=== PATIENT | female | born 1960 | race Caucasian/White ===

== ENCOUNTER 2016-09-14 11:58 | Emergency (ER) | payer MEDICAID, MEDICARE ==
--- NOTE | 2016-09-14 12:43 | ER Document Report ---
ED Medical Screen (RME) - General Chief Complaint: Abdominal Pain Stated Complaint: STOMACH PAIN Mode of Arrival: Wheelchair Information source: Patient Notes: Patient complaints of intermittent severe lower abdominal pain, described as "bladder spasms" that started around 0830 this morning causing her to feel like she might pass out. She states she has tried a bladder pill and her normal morning medications, including morphine and 2 tylenol which has not helped. She has history of OAB, incontinence but this has worsened since this morning. Endorses associated urinary urgency but no dysuria or frequency or any fever, chills, nausea, vomiting. She also states she uses home O2 (2L via [place]) while "resting." O2 sat in triage on RA is 90%. TRAVEL OUTSIDE OF THE [place] IN LAST 30 DAYS: No - Related Data Allergies/Adverse Reactions: rizatriptan benzoate [From Maxalt] Allergy (Severe, Verified 06/02/16 16:01) Tachycardia sumatriptan succinate [From Imitrex STATdose Pen] Allergy (Severe, Verified 16:01) Anaphylaxis zolmitriptan [From Zomig] Allergy (Severe, Verified 06/02/16 16:01) Tachycardia codeine Allergy (Verified 09/14/16 12:09) latex [Latex] Allergy (Verified 06/02/16 16:01) Past Medical History - Past Medical History Cardiac Medical History: Denies: Hx Coronary Artery Disease, Hx Heart Attack, Hx Hypertension Pulmonary Medical History: Reports: Hx Bronchitis, Hx COPD, Hx Pneumonia Denies: Hx Asthma Neurological Medical History: Reports: Hx Cerebrovascular Accident - 2003 and 2008; left sided deficit, Hx Migraine. Denies: Hx Seizures GI Medical History: Reports: Hx Diverticulitis, Hx Hiatal Hernia, Hx Ulcer, Hx Colonoscopy, Hx Endoscopy Musculoskeltal Medical History: Reports Hx Arthritis, Reports Hx Musculoskeletal Deformity, Reports Hx Musculoskeletal Trauma Psychiatric Medical History: Reports: Hx Anxiety, Hx Depression Traumatic Medical History: Reports: Hx Fractures Past Surgical History: Reports: Hx Appendectomy, Hx Bowel Surgery - resection, Hx Cardiac Surgery - mechanical aortic valve, Hx Hysterectomy, Hx Nose Surgery, Hx Oral Surgery - wisdom teeth and TMJ, Hx Orthopedic Surgery - carpal tunnel right wrist, right elbow nerve, Hx Tonsillectomy, Hx Valve Replacement - Immunizations Immunizations up to date: Yes Hx Diphtheria, Pertussis, Tetanus Vaccination: Yes - 2011 Review of Systems - Review of Systems Constitutional: See HPI Gastrointestinal: See HPI Genitourinary: See HPI Physical Exam - Vital signs Vitals: Temp Pulse Resp BP 97.9 F 101 H 20 100/67 09/14/16 12:12 09/14/16 12:12 09/14/16 12:12 09/14/16 12:12 - Notes Notes: General: Well-appearing, no respiratory distress. Speaking in full sentences. O2 at 90% on RA. Course - Re-evaluation Re-evalutation: 09/14/16 12:43 Patient seen and examined. Ordered oxygen supplementation and urinalysis. - Vital Signs Vital signs: Temp Pulse Resp BP Pulse Ox 97.9 F 101 H 20 100/67 09/14/16 12:12 09/14/16 12:12 09/14/16 12:12 09/14/16 12:12
--- NOTE | 2016-09-14 16:34 | ER Document Report ---
ED GI/ - General Mode of Arrival: Wheelchair Information source: Patient TRAVEL OUTSIDE OF THE [place] IN LAST 30 DAYS: No - HPI Patient complains to provider of: Abdominal pain Associated symptoms: Other - See above <JENNIFER BIANCHI - Last Filed: 09/14/16 17:22> <PAVANNIKKI Kaur - Last Filed: 09/14/16 18:57> - General Chief Complaint: Abdominal Pain Stated Complaint: STOMACH PAIN Notes: Patient is a 56 year old female, with a past medical history including UTIs, who presents to the emergency department complaining of abdominal pain. Patient reports the pain is caused by bladder spasms that she usually experiences when she has an infection. Patient states that she had similar symptoms 3 weeks ago and was prescribed Keflex by Dr. Taylor. PCP: Dr. Byrd (JENNIFER BIANCHI) - Related Data Allergies/Adverse Reactions: rizatriptan benzoate [From Maxalt] Allergy (Severe, Verified 06/02/16 16:01) Tachycardia sumatriptan succinate [From Imitrex STATdose Pen] Allergy (Severe, Verified 16:01) Anaphylaxis zolmitriptan [From Zomig] Allergy (Severe, Verified 06/02/16 16:01) Tachycardia codeine Allergy (Verified 09/14/16 12:09) latex [Latex] Allergy (Verified 06/02/16 16:01) Past Medical History - General Information source: Patient - Social History Smoking Status: Unknown if Ever Smoked Family History: Reviewed & Not Pertinent, CAD, CVA, DM, Hyperlipidemia, Hypertension, Malignancy, Thyroid Disfunction Pulmonary Medical History: Reports: Hx Bronchitis, Hx COPD, Hx Pneumonia Neurological Medical History: Reports: Hx Cerebrovascular Accident - 2003 and 2008; left sided deficit, Hx Migraine GI Medical History: Reports: Hx Diverticulitis, Hx Hiatal Hernia, Hx Ulcer, Hx Colonoscopy, Hx Endoscopy Musculoskeltal Medical History: Reports Hx Arthritis, Reports Hx Musculoskeletal Deformity, Reports Hx Musculoskeletal Trauma Psychiatric Medical History: Reports: Hx Anxiety, Hx Depression Traumatic Medical History: Reports: Hx Fractures Past Surgical History: Reports: Hx Appendectomy, Hx Bowel Surgery - resection, Hx Cardiac Surgery - mechanical aortic valve, Hx Hysterectomy, Hx Nose Surgery, Hx Oral Surgery - wisdom teeth and TMJ, Hx Orthopedic Surgery - carpal tunnel right wrist, right elbow nerve, Hx Tonsillectomy, Hx Valve Replacement - Immunizations Immunizations up to date: Yes Hx Diphtheria, Pertussis, Tetanus Vaccination: Yes - 2011 Hx Pneumococcal Vaccination: 09/13/04 <JENNIFER BIANCHI - Last Filed: 09/14/16 17:22> Review of Systems - Review of Systems Constitutional: No symptoms reported EENT: No symptoms reported Cardiovascular: No symptoms reported Respiratory: No symptoms reported Gastrointestinal: See HPI, Abdominal pain - bladder spasm Genitourinary: No symptoms reported Female Genitourinary: No symptoms reported Musculoskeletal: No symptoms reported Skin: No symptoms reported Hematologic/Lymphatic: No symptoms reported Neurological/Psychological: No symptoms reported -: Yes All other systems reviewed and negative <JENNIFER BIANCHI - Last Filed: 09/14/16 17:22> Physical Exam - Vital signs Interpretation: Normal - General General appearance: Appears well, Alert - HEENT Head: Normocephalic, Atraumatic - Respiratory Respiratory status: No respiratory distress Chest status: Nontender Breath sounds: Normal Chest palpation: Normal - Cardiovascular Rhythm: Regular Murmur: Yes - Click and murmur noted on auscultation from mechanical valve - Abdominal Inspection: Normal Distension: No distension Bowel sounds: Normal Tenderness: Tender - suprapubic tenderness to palpation Organomegaly: No organomegaly - Extremities General upper extremity: Normal inspection General lower extremity: Normal inspection - Neurological Neuro grossly intact: Yes Cognition: Normal Orientation: AAOx4 Keli Coma Scale Eye Opening: Spontaneous [place] Coma Scale Verbal: Oriented [place] Coma Scale Motor: Obeys Commands Keli Coma Scale Total: 15 Speech: Normal - Psychological Associated symptoms: Normal affect, Normal mood - Skin Skin Temperature: Warm Skin Moisture: Dry Skin Color: Normal <JENNIFER BIANCHI - Last Filed: 09/14/16 17:22> Course <JENNIFER BIANCHI - Last Filed: 09/14/16 17:22> - Laboratory Result Diagrams: 09/14/16 17:17 09/14/16 17:17 <NIKKI BROWNE - Last Filed: 09/14/16 18:57> - Re-evaluation Re-evalutation: 09/14/16 18:53 Reviewing the patient's records shows when she has had positive urine cultures, they grew organisms were sensitive to Keflex. The fact that her urologist put her on Keflex 3 weeks ago suggest that he has the same information. (NIKKI BROWNE) - Vital Signs Vital signs: Temp Pulse Resp BP Pulse Ox 97.9 F 101 H 20 100/67 09/14/16 12:12 09/14/16 12:12 09/14/16 12:12 09/14/16 12:12 (JENNIFER BIANCHI) (NIKKI BROWNE) - Laboratory Laboratory results interpreted by me: 09/14/16 09/14/16 09/14/16 16:15 17:17 17:17 MCH 26.6 L MCHC 31.4 L RDW 16.4 H PT 22.0 H Urine Protein 100 H Urine Blood LARGE H Ur Leukocyte Esterase LARGE H (NIKKI BROWNE) Discharge <JENNIFER BIANCHI - Last Filed: 09/14/16 17:22> <NIKKI BROWNE - Last Filed: 09/14/16 18:57> - Discharge Clinical Impression: Urinary tract infection Qualifiers: Urinary tract infection type: acute cystitis Hematuria presence: without hematuria Qualified Code(s): N30.00 - Acute cystitis without hematuria Condition: Stable Disposition: HOME, SELF-CARE Additional Instructions: Urinary Tract Infection: Your evaluation indicates that you have a urinary tract infection. This is due to germs growing in the bladder. This is a common problem. This infection usually responds quickly to antibiotics. Your antibiotic should be taken exactly as prescribed. Drink plenty of fluids -- three to four quarts a day. Occasionally, a bladder anesthetic will be prescribed to help stop the feeling of urgency until the antibiotic has a chance to clear the infection. This may cause your urine to be dark orange. Certain urine infections require a culture. If the doctor obtained a culture, the results will be back in two days. You should call to see if a change in treatment is needed. A repeat urinalysis after you finish treatment is often recommended. The physician will let you know if further testing is required. Call the doctor if you develop fever, chills, flank pain, inability to urinate, or blood in the urine. TAKE THE MEDICATION PRESCRIBED. DRINK PLENTY OIF FLUIDS. TAKE AZO-STANDARD TO REDUCE THE BLADDER IRRITATION SYMPTOMS. FOLLOW UP WITH YOUR DOCTOR THIS WEEK IF NOT IMPROVING. RETURN TO THE EMERGENCY ROOM IF ANY NEW OR WORSENING SYMPTOMS. Prescriptions: Cephalexin Monohydrate [Keflex 500 mg Capsule] 500 mg PO TID #15 capsule Referrals: ANALI BYRD MD [Primary Care Provider] - Follow up as needed Scribe Attestation: 09/14/16 18:57 I personally performed the services described in the documentation, reviewed and edited the documentation which was dictated to the scribe in my presence, and it accurately records my words and actions. (NIKKI BROWNE) Scribe Documentation - Scribe Written by Yane:: Yane Denney, 09/14/16 acting as scribe for :: Pavan <JENNIFER BIANCHI - Last Filed: 09/14/16 17:22>
[2016-09-14 16:44] LABS: APPEARANCE,URINE CLOUDY; BILIRUBIN,URINE NEGATIVE (NEGATIVE); GLUCOSE, URINE NEGATIVE (NEGATIVE); KETONES,URINE NEGATIVE (NEGATIVE); LEUKOCYTE ESTERASE,URINE LARGE (NEGATIVE); NITRITE,URINE NEGATIVE (NEGATIVE); PROTEIN,URINE 100 mg/dL (NEGATIVE); URINE SPECIFIC GRAVITY 1.004; UROBILINOGEN,URINE NEGATIVE mg/dL (<2.0)
[2016-09-14] MEDS ORDERED: HYDROMORPHONE HCL 2 MG TABLET PO ONE (17:05)
[2016-09-14 17:26] LABS: ABSOLUTE BASOPHILS # (AUTO) 0.1 10^3/uL (0.0-0.2); ABSOLUTE EOSINOPHILS # (AUTO) 0.3 10^3/uL (0.0-0.6); ABSOLUTE LYMPHOCYTES (AUTO) 2.1 10^3/uL (0.5-4.7); ABSOLUTE MONOCYTES (AUTO) 0.5 10^3/uL (0.1-1.4); ABSOLUTE NEUT (AUTO) 7.4 10^3/uL (1.7-8.2); BASOPHILS % (AUTO) 1.3 % (0-2); EOSINOPHILS % (AUTO) 3.3 % (0-6); HEMATOCRIT 42.4 % (36.0-47.0); HEMOGLOBIN 13.3 g/dL (12.0-15.5); HGB HCT DIFFERENCE -2.5; MEAN CORPUSCULAR HEMOGLOBIN 26.6 pg (27.0-33.4); MEAN CORPUSCULAR HGB CONC 31.4 g/dL (32.0-36.0); MEAN CORPUSCULAR VOLUME 85 fl (80-97); MONOCYTES % (AUTO) 4.6 % (3-13); RED BLOOD COUNT 5.01 10^6/uL (3.72-5.28); RED CELL DISTRIBUTION WIDTH 16.4 % (11.5-14.0); SEGMENTED NEUTROPHILS % (AUTO) 70.8 % (42-78); WHITE BLOOD COUNT 10.4 10^3/uL (4.0-10.5)
[2016-09-14 17:48] LABS: ALANINE AMINOTRANSFERASE 32 U/L (9-52); ALKALINE PHOSPHATASE 90 U/L (38-126); ANION GAP 11 (5-19); ASPARTATE AMINO TRANSFERASE 24 U/L (14-36); BILIRUBIN,TOTAL 0.8 mg/dL (0.2-1.3); BLOOD UREA NITROGEN 19 mg/dL (7-20); CARBON DIOXIDE 29 mmol/L (22-30); CHLORIDE 105 mmol/L (98-107); CREATININE RESULT 0.78 mg/dL (0.52-1.25); GLUCOSE 83 mg/dL (75-110); POTASSIUM 3.9 mmol/L (3.6-5.0); TOTAL PROTEIN 6.7 g/dL (6.3-8.2)
[2016-09-14] MEDS ORDERED: CEPHALEXIN 500 MG CAPSULE PO ONE (18:52)
[2016-09-14] MEDS ORDERED: PHENAZOPYRIDINE HCL 200 MG TABLET PO ONE (18:55)
[2016-09-14 19:38] VITALS: BP 134/90
== END 2016-09-14 19:42 | disposition home or self-care (01) ==
LOC: ER 11:58
DX: N30.00 Acute cystitis without hematuria (principal); R10.9 Unspecified abdominal pain
CPT/HCPCS: 99284; 36415; 87086; 85025; 85610; 80053; 81001; A9270 ×3; J3490

== ENCOUNTER 2016-11-12 11:19 | Day surgery (SDC) | payer MEDICARE, MEDICAID ==
[2016-11-09 11:18] LABS: ABSOLUTE BASOPHILS # (AUTO) 0.1 10^3/uL (0.0-0.2); ABSOLUTE EOSINOPHILS # (AUTO) 0.3 10^3/uL (0.0-0.6); ABSOLUTE LYMPHOCYTES (AUTO) 1.7 10^3/uL (0.5-4.7); ABSOLUTE MONOCYTES (AUTO) 0.5 10^3/uL (0.1-1.4); ABSOLUTE NEUT (AUTO) 4.4 10^3/uL (1.7-8.2); BASOPHILS % (AUTO) 1.3 % (0-2); EOSINOPHILS % (AUTO) 4.2 % (0-6); HEMATOCRIT 42.5 % (36.0-47.0); HEMOGLOBIN 13.8 g/dL (12.0-15.5); HGB HCT DIFFERENCE -1.1; LYMPHOCYTES % (AUTO) 25.1 % (13-45); MEAN CORPUSCULAR HEMOGLOBIN 27.5 pg (27.0-33.4); MEAN CORPUSCULAR HGB CONC 32.4 g/dL (32.0-36.0); MEAN CORPUSCULAR VOLUME 85 fl (80-97); MONOCYTES % (AUTO) 6.6 % (3-13); RED BLOOD COUNT 5.01 10^6/uL (3.72-5.28); RED CELL DISTRIBUTION WIDTH 17.7 % (11.5-14.0); SEGMENTED NEUTROPHILS % (AUTO) 62.8 % (42-78)
[2016-11-09 11:46] LABS: ANION GAP 10 (5-19); BLOOD UREA NITROGEN 12 mg/dL (7-20); CALCIUM 9.8 mg/dL (8.4-10.2); CARBON DIOXIDE 26 mmol/L (22-30); CHLORIDE 106 mmol/L (98-107); CREATININE RESULT 0.89 mg/dL (0.52-1.25); GLUCOSE 108 mg/dL (75-110); POTASSIUM 4.5 mmol/L (3.6-5.0); SODIUM 141.9 mmol/L (137-145)
--- NOTE | 2016-11-09 15:29 | EKG REPORT ---
SEVERITY:- NORMAL ECG - SINUS RHYTHM EARLY TRANSITION WITH NONSPECIFIC T IVERSIONS. : Confirmed by: Elui Alex MD 09-Nov-2016 15:28:47
[~2016-11-12 11:19] MED LIST: LACTATED RINGERS 1000 ML IV PRN; LIDOCAINE 0.5% INJ-PF (5 MG/ML) 50 ML SDV SUBCUT PRN
[2016-11-12 12:06] LABS: PROTHROMBIN TIME 13.1 SEC (11.4-15.4)
[2016-11-12 12:07] LABS: PARTIAL THROMBOPLASTIN TIME 26.9 SEC (23.5-35.8)
[2016-11-12] MEDS ORDERED: MIDAZOLAM 2 MG/2 ML INJ IV ONE (12:30)
[2016-11-12] MEDS ORDERED: LIDOCAINE 2%/EPINEPHRINE INJ 1.7 ML CARTRIDGE ONE (12:45)
[2016-11-12] MEDS ORDERED: FENTANYL CITRATE INJ/PF 100 MCG/2 ML AMPUL ONE (12:57)
[2016-11-12] MEDS ORDERED: PROPOFOL INJ 200 MG/20 ML VIAL IV ONE (12:58)
[2016-11-12] MEDS ORDERED: MIDAZOLAM 2 MG/2 ML INJ ONE (12:58)
[2016-11-12] MEDS ORDERED: EPHEDRINE SULFATE INJ 50 MG/1 ML AMPULE ONE (12:58)
[2016-11-12] MEDS ORDERED: MEPERIDINE HCL/PF INJ 25 MG/1 ML DISP.SYRIN IV PRN (13:31)
[2016-11-12] MEDS ORDERED: FENTANYL CITRATE INJ/PF 100 MCG/2 ML AMPUL IV PRN ×3 (13:31)
[2016-11-12] MEDS ORDERED: ONDANSETRON HCL INJ/PF 4 MG/2 ML SDV IV PRN (13:31)
[2016-11-12] MEDS ORDERED: PROMETHAZINE HCL INJ 25 MG/1 ML VIAL IV PRN ×2 (13:31)
[2016-11-12] MEDS ORDERED: MORPHINE SULFATE 10 MG/ML INJ IV PRN (13:31)
[2016-11-12] MEDS ORDERED: DIPHENHYDRAMINE HCL 50 MG/ML VIAL IV PRN (13:31)
--- NOTE | 2016-11-12 13:49 | Operative Report ---
Operative Report DATE OF SURGERY: 11/12/16 PREOPERATIVE DIAGNOSIS: Dental caries POSTOPERATIVE DIAGNOSIS: Same OPERATION: Surgical removal of teeth numbers 9, 13 and 22 SURGEON: KADE SEPULVEDA ANESTHESIA: LMAC TISSUE REMOVED OR ALTERED: Teeth which were discarded COMPLICATIONS: None ESTIMATED BLOOD LOSS: 20 mL INTRAOPERATIVE FINDINGS: Nonrestorable and decayed teeth PROCEDURE: The patient was brought into operating room #4 and placed on the operating room table in supine position. She was prepped and draped in usual fashion for an intraoral procedure. Adequate intravenous sedation was achieved by the anesthesia provider. A total of 2 carpules of 2% lidocaine with 1:100,000 epinephrine were delivered to the planned surgical sites via both infiltration and nerve block. A bite block and throat screen were used throughout the procedure. Full-thickness mucoperiosteal flaps were developed via envelope incisions. Ostectomy was completed as needed. The teeth were delivered using elevators and forceps. Sockets were curetted free of any debris and packed with Surgifoam to aid in hemostasis. The flaps were reapproximated and sutured with 4-0 chromic gut suture. The oral cavity was inspected and found to be free of debris. Gauze pack was placed to aid in continued hemostasis. The patient was transported to recovery room in spontaneous breathing fashion.
[2016-11-12] MEDS ORDERED: DEXMEDETOMIDINE INJ 80 MCG/20 ML VIAL IV ONE (13:59)
[2016-11-12] MEDS ORDERED: LIDOCAINE 2% INJ-PF (20 MG/ML) 10 ML AMPUL ONE (14:26)
[2016-11-12 16:35] VITALS: BP 120/75
== END 2016-11-12 16:30 | disposition home or self-care (01) ==
LOC: OROUT 11:19
PROVIDERS: ATTEND Dentist Oral and Maxillofacial Surgery
PROC: 0CDXXZ0 Extraction of Lower Tooth, Single, External Approach (ICD-10-PCS; 2016-11-12)
PROC: 0CDWXZ1 Extraction of Upper Tooth, Multiple, External Approach (ICD-10-PCS; principal; 2016-11-12 13:30)
DX: K02.9 Dental caries, unspecified (principal); F17.210 Nicotine dependence, cigarettes, uncomplicated; R06.02 Shortness of breath; Z79.899 Other long term (current) drug therapy; Z79.01 Long term (current) use of anticoagulants; Z86.73 Personal history of transient ischemic attack (TIA), and cerebral infarction without residual deficits; Z88.5 Allergy status to narcotic agent; Z88.8 Allergy status to other drugs, medicaments and biological substances; M19.90 Unspecified osteoarthritis, unspecified site; Z91.040 Latex allergy status
CPT/HCPCS: 41899; 93005; 36415 ×2; 82947; 85025; 85610; 85730; 80048; 93010; J2250; J3490 ×3; J3010; J2704; 170

== ENCOUNTER 2016-12-18 20:48 | Emergency (ER) | payer MEDICARE, MEDICAID ==
--- NOTE | 2016-12-18 21:47 | ER Document Report ---
ED General - General Chief Complaint: Abdominal Pain Stated Complaint: ABDOMINAL PAIN Mode of Arrival: Medic Information source: Patient Notes: Patient presents emergency department via EMS with complaints of right upper quadrant epigastric pain that started tonight at 7:00. Patient reports she collards and greens and shortly after she had a sharp pain. She denies fever vomiting diarrhea. Denies chest pain. She reports urinary frequency and gives history of frequent UTIs. Patient is currently taking Bactrim for the UTI. She denies trauma. Patient is in good spirits smiles laughs easily. Patient asking for a warm coke, reports she thinks she'll feel better if she burps. TRAVEL OUTSIDE OF THE [place] IN LAST 30 DAYS: No - HPI Onset: This evening Onset/Duration: Sudden Quality of pain: Pressure Associated symptoms: None Exacerbated by: Denies Relieved by: Denies Similar symptoms previously: No Recently seen / treated by doctor: No - Related Data Allergies/Adverse Reactions: adhesive tape Allergy (Severe, Verified 11/09/16 09:48) Blisters codeine Allergy (Severe, Verified 11/09/16 09:47) itching latex [Latex] Allergy (Severe, Verified 11/09/16 09:47) skin irritation rizatriptan benzoate [From Maxalt] Allergy (Severe, Verified 06/02/16 16:01) Tachycardia sumatriptan succinate [From Imitrex STATdose Pen] Allergy (Severe, Verified 16:01) Anaphylaxis zolmitriptan [From Zomig] Allergy (Severe, Verified 06/02/16 16:01) Tachycardia Past Medical History - General Information source: Patient - Social History Smoking Status: Unknown if Ever Smoked Cigarette use (# per day): No Frequency of alcohol use: None Drug Abuse: None Lives with: Family - father Family History: Reviewed & Not Pertinent, CAD, CVA, DM, Hyperlipidemia, Hypertension, Malignancy, Thyroid Disfunction - Past Medical History Cardiac Medical History: Reports: Hx Coronary Artery Disease - on meds Denies: Hx Heart Attack, Hx Hypertension Pulmonary Medical History: Reports: Hx Bronchitis - hx of, Hx COPD - inhalers, Hx Pneumonia - hx of Denies: Hx Asthma Neurological Medical History: Reports: Hx Cerebrovascular Accident - 2003 and 2008; left sided deficit, Hx Migraine. Denies: Hx Seizures GI Medical History: Reports: Hx Diverticulitis, Hx Hiatal Hernia, Hx Ulcer, Hx Colonoscopy, Hx Endoscopy Musculoskeltal Medical History: Reports Hx Arthritis - back, Reports Hx Musculoskeletal Deformity, Reports Hx Musculoskeletal Trauma Psychiatric Medical History: Reports: Hx Anxiety, Hx Depression Traumatic Medical History: Reports: Hx Fractures Past Surgical History: Reports: Hx Appendectomy, Hx Bowel Surgery - resection, Hx Cardiac Surgery - mechanical aortic valve, Hx Hysterectomy, Hx Nose Surgery, Hx Oral Surgery - wisdom teeth and TMJ, Hx Orthopedic Surgery - carpal tunnel right wrist, right elbow nerve, Hx Tonsillectomy, Hx Valve Replacement - Immunizations Immunizations up to date: Yes Hx Diphtheria, Pertussis, Tetanus Vaccination: Yes - 2011 Hx Pneumococcal Vaccination: 09/13/04 Review of Systems - Review of Systems Notes: Review HPI for review of systems., All other systems negative Physical Exam - Vital signs Vitals: Pulse Resp BP Pulse Ox 79 18 118/79 98 12/19/16 01:29 12/19/16 01:29 12/19/16 01:29 12/19/16 01:29 - Notes Notes: PHYSICAL EXAMINATION: GENERAL: No acute distress , smiling, laughs easily HEAD: Atraumatic, normocephalic. EYES: Pupils equal round extraocular movements intact, sclera anicteric, conjunctiva are normal. ENT: nares patent, Moist mucous membranes. NECK: Normal range of motion, supple without lymphadenopathy LUNGS: CTAB and equal. No wheezes rales or rhonchi. HEART: Regular rate and rhythm without murmurs ABDOMEN: Soft, reports some RUQ, epigastric tenderness. No guarding, no rebound BACK: Denies back pain EXTREMITIES: Normal range of motion, no pitting edema. No cyanosis. left side weakness from hx stroke NEUROLOGICAL: Cranial nerves grossly intact. Normal sensory/motor exams. PSYCH: Normal mood, normal affect. SKIN: Warm, Dry, normal turgor, no rashes or lesions noted Course - Re-evaluation Re-evalutation: 12/19/16 Labs unremarkable . Patient was instructed on all labs ultrasound instructed on UTI positive nitrite. Patient was instructed on Macrobid with urine culture pending. She verbalized understanding to all instructions. The patient presents with abdominal pain without signs of peritonitis or other life threatening or serious etiology. The patient appears stable for discharge and has been instructed to return immediately if the symptoms worsen in any way or in 8-12 hours if not improved for reevaluation. The patient has been instructed to return if the symptoms worsen or change in any way. - Vital Signs Vital signs: Temp Pulse Resp BP Pulse Ox 79 18 118/79 98 12/19/16 01:29 12/19/16 01:29 12/19/16 01:29 12/19/16 01:29 - Laboratory Result Diagrams: 12/18/16 22:20 12/18/16 22:20 Laboratory results interpreted by me: 12/18/16 12/18/16 12/18/16 22:20 22:20 23:15 RDW 16.1 H Glucose 114 H Urine Nitrite POSITIVE H Ur Leukocyte Esterase SMALL H - Diagnostic Test Radiology reviewed: Image reviewed, Reports reviewed - US/U/ S ABDOMEN LIMITED W/O DOP IMPRESSION: FATTY LIVER. PANCREAS COMPLETELY OBSCURED. OTHERWISE NORMAL RIGHT UPPER QUADRANT ULTRASOUND Discharge - Discharge Clinical Impression: Abdominal pain, Urinary tract infection, Elevated blood pressure reading Condition: Stable Disposition: HOME, SELF-CARE Instructions: Abdominal Pain ([facility]), Urinary Tract Infection ([facility]), Nitrofurantoin ([facility]) Additional Instructions: *You have been evaluated for abdominal pain, UTI *Take medication as prescribed *Monitor your temperature *Push fluids *Follow up with your primary care provider within one week for recheckk *Return to ED for worsening condition, changes, needs, fever, increased pain Monitor your blood pressure. Your blood pressure was elevated today. This may be because you were anxious, in pain or because you need medication. It is important to follow up with your primary care provider for full evaluation. Prescriptions: Nitrofurantoin/Nitrofuran Mac [Macrobid 100 mg Capsule] 100 mg PO BID #20 capsule Forms: Elevated Blood Pressure Referrals: ANALI SANDOVAL MD [Primary Care Provider] - Follow up as needed
[2016-12-18 22:42] LABS: ABSOLUTE BASOPHILS # (AUTO) 0.1 10^3/uL (0.0-0.2); ABSOLUTE EOSINOPHILS # (AUTO) 0.3 10^3/uL (0.0-0.6); ABSOLUTE LYMPHOCYTES (AUTO) 1.9 10^3/uL (0.5-4.7); ABSOLUTE MONOCYTES (AUTO) 0.6 10^3/uL (0.1-1.4); ABSOLUTE NEUT (AUTO) 6.6 10^3/uL (1.7-8.2); BASOPHILS % (AUTO) 0.8 % (0-2); HEMATOCRIT 38.2 % (36.0-47.0); HEMOGLOBIN 12.7 g/dL (12.0-15.5); HGB HCT DIFFERENCE -0.1; LYMPHOCYTES % (AUTO) 20.5 % (13-45); MEAN CORPUSCULAR HEMOGLOBIN 28.5 pg (27.0-33.4); MEAN CORPUSCULAR HGB CONC 33.2 g/dL (32.0-36.0); MEAN CORPUSCULAR VOLUME 86 fl (80-97); MONOCYTES % (AUTO) 5.9 % (3-13); RED BLOOD COUNT 4.46 10^6/uL (3.72-5.28); RED CELL DISTRIBUTION WIDTH 16.1 % (11.5-14.0); SEGMENTED NEUTROPHILS % (AUTO) 69.8 % (42-78); WHITE BLOOD COUNT 9.5 10^3/uL (4.0-10.5)
[2016-12-18 23:02] LABS: ALANINE AMINOTRANSFERASE 25 U/L (9-52); ALBUMIN 3.8 g/dL (3.5-5.0); ALKALINE PHOSPHATASE 87 U/L (38-126); ANION GAP 9 (5-19); ASPARTATE AMINO TRANSFERASE 25 U/L (14-36); BILIRUBIN,DIRECT 0.2 mg/dL (0.0-0.4); BILIRUBIN,TOTAL 0.7 mg/dL (0.2-1.3); BLOOD UREA NITROGEN 14 mg/dL (7-20); CALCIUM 9.3 mg/dL (8.4-10.2); CARBON DIOXIDE 28 mmol/L (22-30); CHLORIDE 104 mmol/L (98-107); CREATININE RESULT 0.71 mg/dL (0.52-1.25); GLUCOSE 114 mg/dL (75-110); LIPASE 66.7 U/L (23-300); POTASSIUM 4.1 mmol/L (3.6-5.0); SODIUM 141.4 mmol/L (137-145); TOTAL PROTEIN 6.5 g/dL (6.3-8.2)
[2016-12-19 00:07] LABS: APPEARANCE,URINE SLIGHTLY-CLOUDY; BILIRUBIN,URINE NEGATIVE (NEGATIVE); GLUCOSE, URINE NEGATIVE (NEGATIVE); KETONES,URINE NEGATIVE (NEGATIVE); LEUKOCYTE ESTERASE,URINE SMALL (NEGATIVE); NITRITE,URINE POSITIVE (NEGATIVE); PROTEIN,URINE NEGATIVE (NEGATIVE); URINE SPECIFIC GRAVITY 1.006; UROBILINOGEN,URINE NEGATIVE mg/dL (<2.0)
[2016-12-19 01:30] VITALS: BP 118/79
== END 2016-12-19 01:32 | disposition home or self-care (01) ==
LOC: ER 20:48
DX: N39.0 Urinary tract infection, site not specified (principal); R10.11 Right upper quadrant pain; R10.13 Epigastric pain; R03.0 Elevated blood-pressure reading, without diagnosis of hypertension; I25.10 Atherosclerotic heart disease of native coronary artery without angina pectoris; J44.9 Chronic obstructive pulmonary disease, unspecified; I69.954 Hemiplegia and hemiparesis following unspecified cerebrovascular disease affecting left non-dominant side; Z87.440 Personal history of urinary (tract) infections; Z88.6 Allergy status to analgesic agent; Z91.040 Latex allergy status; Z90.710 Acquired absence of both cervix and uterus
CPT/HCPCS: 36415; 76705; 80053; 81001; 83690; 85025; 87086; 87088; 87186; 99284

== ENCOUNTER 2017-01-23 16:10 | Emergency (ER) | payer MEDICARE, MEDICAID ==
--- NOTE | 2017-01-23 16:16 | ER Document Report ---
ED GI/ - General Chief Complaint: Pain With Urination Stated Complaint: UTI Time Seen by Provider: 01/23/17 16:16 Notes: The patient is a 56-year-old female, past medical history prior CVA with residual left-sided weakness, hypertension, presents with 2 days of worsening suprapubic pain and subjective fevers. She saw her primary care physician 4 days ago and was started on Levaquin and AZO for a UTI. She also had a Parekh placed because of the painful urination. He denies current fevers, nausea, vomiting, flank pain, headache, increased weakness, numbness or chest pain. TRAVEL OUTSIDE OF THE [place] IN LAST 30 DAYS: No - Related Data Allergies/Adverse Reactions: adhesive tape Allergy (Severe, Verified 11/09/16 09:48) Blisters codeine Allergy (Severe, Verified 11/09/16 09:47) itching latex [Latex] Allergy (Severe, Verified 11/09/16 09:47) skin irritation rizatriptan benzoate [From Maxalt] Allergy (Severe, Verified 06/02/16 16:01) Tachycardia sumatriptan succinate [From Imitrex STATdose Pen] Allergy (Severe, Verified 16:01) Anaphylaxis zolmitriptan [From Zomig] Allergy (Severe, Verified 06/02/16 16:01) Tachycardia Past Medical History - General Information source: Patient - Social History Smoking Status: Unknown if Ever Smoked Family History: Reviewed & Not Pertinent, CAD, CVA, DM, Hyperlipidemia, Hypertension, Malignancy, Thyroid Disfunction - Past Medical History Cardiac Medical History: Reports: Hx Coronary Artery Disease - on meds Denies: Hx Heart Attack, Hx Hypertension Pulmonary Medical History: Reports: Hx Bronchitis - hx of, Hx COPD - inhalers, Hx Pneumonia - hx of Denies: Hx Asthma Neurological Medical History: Reports: Hx Cerebrovascular Accident - 2003 and 2009; left sided deficit, Hx Migraine. Denies: Hx Seizures GI Medical History: Reports: Hx Diverticulitis, Hx Hiatal Hernia, Hx Ulcer, Hx Colonoscopy, Hx Endoscopy Musculoskeltal Medical History: Reports Hx Arthritis - back, Reports Hx Musculoskeletal Deformity, Reports Hx Musculoskeletal Trauma Psychiatric Medical History: Reports: Hx Anxiety, Hx Depression Traumatic Medical History: Reports: Hx Fractures Past Surgical History: Reports: Hx Appendectomy, Hx Bowel Surgery - resection, Hx Cardiac Surgery - mechanical aortic valve, Hx Hysterectomy, Hx Nose Surgery, Hx Oral Surgery - wisdom teeth and TMJ, Hx Orthopedic Surgery - carpal tunnel right wrist, right elbow nerve, Hx Tonsillectomy, Hx Valve Replacement - Immunizations Immunizations up to date: Yes Hx Diphtheria, Pertussis, Tetanus Vaccination: Yes - 2011 Hx Pneumococcal Vaccination: 09/13/04 Review of Systems - Review of Systems Notes: REVIEW OF SYSTEMS: CONSTITUTIONAL: +fevers, -chills EENT: -eye pain, -difficulty swallowing, -nasal congestion CARDIOVASCULAR:-chest pain, -syncope. RESPIRATORY: -cough, -SOB GASTROINTESTINAL: -abdominal pain, -nausea, -vomiting, -diarrhea GENITOURINARY: +dysuria, -hematuria MUSCULOSKELETAL: -back pain, -neck pain SKIN: -rash or skin lesions. HEMATOLOGIC: -easy bruising or bleeding. LYMPHATIC: -swollen, enlarged glands. NEUROLOGICAL: -altered mental status or loss of consciousness, -headache, - neurologic symptoms PSYCHIATRIC: -anxiety, -depression. ALL OTHER SYSTEMS REVIEWED AND NEGATIVE. Physical Exam - Notes Notes: PHYSICAL EXAMINATION: GENERAL: Well-appearing, well-nourished and in no acute distress. HEAD: Atraumatic, normocephalic. EYES: Pupils equal round and reactive to light, extraocular movements intact, sclera anicteric, conjunctiva are normal. ENT: nares patent, oropharynx clear without exudates. Moist mucous membranes. NECK: Normal range of motion, supple without lymphadenopathy LUNGS: Breath sounds clear to auscultation bilaterally and equal. No wheezes rales or rhonchi. HEART: Regular rate and rhythm without murmurs ABDOMEN: Soft, nontender, normoactive bowel sounds. No guarding, no rebound. No masses appreciated. : parekh in place with orange urine in bag, suprapubic tenderness, negative CVA tenderness EXTREMITIES: Normal range of motion, no pitting or edema. No cyanosis. NEUROLOGICAL: Cranial nerves grossly intact. Normal speech. Chronic left-sided weakness. PSYCH: Normal mood, normal affect. SKIN: Warm, Dry, normal turgor, no rashes or lesions noted. Course - Re-evaluation Re-evalutation: Patient with evidence of UTI, but no leukocytosis or fever and a normal lactate. She says that her blood pressure is always 95/70 and this is normal for her. Will switch patient over to Keflex and have her follow-up with her primary care physician. Talked to her about removing the Parekh, but she said that it is too painful when she urinates and wishes to keep it in. Given strict return precautions and she understands. - Laboratory Result Diagrams: 01/23/17 16:40 01/23/17 16:40 Laboratory results interpreted by me: 01/23/17 01/23/17 16:40 16:40 Hgb 11.3 L Hct 35.2 L RDW 16.0 H Urine Protein 30 H Urine Blood SMALL H Urine Nitrite POSITIVE H Urine Urobilinogen 4.0 H Ur Leukocyte Esterase SMALL H Discharge - Discharge Clinical Impression: UTI (urinary tract infection) Qualifiers: Urinary tract infection type: acute cystitis Hematuria presence: without hematuria Qualified Code(s): N30.00 - Acute cystitis without hematuria Condition: Good Disposition: HOME, SELF-CARE Additional Instructions: Stop the Levaquin and switched to Keflex to help with your UTI. Return to the ER if you notice worsening symptoms or any other concerns. You must follow up with your primary care physician this week. URINARY TRACT INFECTION: Your evaluation indicates that you have a urinary tract infection. This is due to germs growing in the bladder. This is a common problem. This infection usually responds quickly to antibiotics. Your antibiotic should be taken exactly as prescribed. Drink plenty of fluids -- three to four quarts a day. Occasionally, a bladder anesthetic will be prescribed to help stop the feeling of urgency until the antibiotic has a chance to clear the infection. This may cause your urine to be dark orange. Certain urine infections require a culture. If the doctor obtained a culture, the results will be back in two days. You should call to see if a change in treatment is needed. A repeat urinalysis after you finish treatment is often recommended. The physician will let you know if further testing is required. Call the doctor if you develop fever, chills, flank pain, inability to urinate, or blood in the urine. ANTIBIOTIC THERAPY: You have been given an antibiotic prescription. It's important that you take all the medication, unless instructed otherwise by your physician. Failure to complete the entire course can result in relapse of your condition. Common side effects of antibiotics include nausea, intestinal cramping, or diarrhea. Women may develop vaginal yeast infections, and babies can get yeast (thrush) in the mouth following the use of antibiotics. Contact your physician if you develop significant side effects from this medication. Allergy to this antibiotic can result in hives, wheezing, faintness, or itching. If symptoms of allergy occur, stop the medication and call the doctor. CEPHALEXIN: The antibiotic you've been prescribed is a member of the cephalosporin class. This type of antibiotic covers a wide variety of infections, including those of the skin, lungs, and urinary tract. It's useful for staph infections. This antibiotic is slightly similar to the penicillin family. In rare cases , a person who is allergic to penicillin will also be allergic to this medication. If you have had a severe allergic reaction to penicillin, and have not taken this antibiotic since that time, notify your doctor. Antibiotics which cover many germs ("broad spectrum" antibiotics) are more likely to cause diarrhea or "yeast" infections. Women prone to vaginal yeast problems may suffer an attack after taking this antibiotic. In infants, oral thrush (white spots "stuck" on the cheek) or yeast diaper rash may result. See your doctor if these problems occur. Call at once if you develop itching, hives , shortness of breath, or lightheadedness. URINARY ANESTHETIC AGENT: You have been given a medication (Pyridium) for urinary tract discomfort. This medicine numbs the lining of the bladder and urethra, resulting in less pain, burning, and urgency. You may take it as needed, according to instructions. When the symptoms resolve, you can stop this medication (be sure to continue any other medications the doctor has given you). This medicine turns the urine a dark orange. It may stain underwear. Occasionally, it can cause nausea. Return for evaluation if there are any unexpected effects, such as itching, hives, or shortness of breath. FOLLOW-UP CARE: If you have been referred to a physician for follow-up care, call the physician s office for an appointment as you were instructed or within the next two days. If you experience worsening or a significant change in your symptoms, notify the physician immediately or return to the Emergency Department at any time for re-evaluation. Prescriptions: Cephalexin Monohydrate [Keflex 500 mg Capsule] 500 mg PO TID #21 capsule
[2017-01-23] MEDS ORDERED: NORMAL SALINE 1000 ML 1,000 ML IV ONE (16:38)
[2017-01-23 17:11] LABS: ABSOLUTE BASOPHILS # (AUTO) 0.1 10^3/uL (0.0-0.2); ABSOLUTE EOSINOPHILS # (AUTO) 0.4 10^3/uL (0.0-0.6); ABSOLUTE LYMPHOCYTES (AUTO) 2.6 10^3/uL (0.5-4.7); ABSOLUTE MONOCYTES (AUTO) 0.6 10^3/uL (0.1-1.4); BASOPHILS % (AUTO) 0.9 % (0-2); EOSINOPHILS % (AUTO) 4.4 % (0-6); HEMATOCRIT 35.2 % (36.0-47.0); HEMOGLOBIN 11.3 g/dL (12.0-15.5); HGB HCT DIFFERENCE -1.3; LYMPHOCYTES % (AUTO) 26.4 % (13-45); MEAN CORPUSCULAR HEMOGLOBIN 28.4 pg (27.0-33.4); MEAN CORPUSCULAR HGB CONC 32.3 g/dL (32.0-36.0); MEAN CORPUSCULAR VOLUME 88 fl (80-97); RED BLOOD COUNT 3.99 10^6/uL (3.72-5.28); SEGMENTED NEUTROPHILS % (AUTO) 62.3 % (42-78); WHITE BLOOD COUNT 9.7 10^3/uL (4.0-10.5)
[2017-01-23 17:28] LABS: ANION GAP 10 (5-19); BLOOD UREA NITROGEN 13 mg/dL (7-20); CALCIUM 8.8 mg/dL (8.4-10.2); CARBON DIOXIDE 28 mmol/L (22-30); CHLORIDE 105 mmol/L (98-107); CREATINE KINASE 67 U/L (30-135); CREATININE RESULT 0.75 mg/dL (0.52-1.25); GLUCOSE 100 mg/dL (75-110); POTASSIUM 4.2 mmol/L (3.6-5.0); SODIUM 142.7 mmol/L (137-145)
[2017-01-23 17:31] LABS: APPEARANCE,URINE SLIGHTLY-CLOUDY; BILIRUBIN,URINE NEGATIVE (NEGATIVE); GLUCOSE, URINE NEGATIVE (NEGATIVE); KETONES,URINE NEGATIVE (NEGATIVE); LEUKOCYTE ESTERASE,URINE SMALL (NEGATIVE); NITRITE,URINE POSITIVE (NEGATIVE); PROTEIN,URINE 30 mg/dL (NEGATIVE)
[2017-01-23] MEDS ORDERED: CEFTRIAXONE 1 GM/D5W RTU 50 ML IV ONE (17:47)
[2017-01-23 20:52] VITALS: BP 128/77
== END 2017-01-23 20:40 | disposition home or self-care (01) ==
LOC: ER 16:10
DX: N30.00 Acute cystitis without hematuria (principal); R30.9 Painful micturition, unspecified; R53.1 Weakness; I10 Essential (primary) hypertension; R10.9 Unspecified abdominal pain; R50.9 Fever, unspecified
CPT/HCPCS: 99284; 96361; 96365; 36415; 87040; 87086; 82550; 85025; 87088; 80048; 81001; 87186; 83605; 83880; 71010; J7030; J0696

== ENCOUNTER → 2017-10-29 | Outpatient (CLI) | payer MEDICARE, MEDICAID ==
--- NOTE | 2017-10-30 12:25 | XCELERA REPORT ---
[address] [address] Lower Extremity Venous Evaluation Name: ROLANDO CARO Age: 57 yrs Gender: Female : 1960 Patient Status: Outpatient Patient Location: Study Date: 10/29/2017 04:51 PM Procedure: Color flow and duplex imaging of the veins of the right lower extremity as well as the left Common Femoral vein. Reason For Study: SOFT TISSUE DISORDER Ordering Physician: ELVA KELLEY Performed By: Gladys Rehman Right Sided Venous Evaluation Normal vessel filling wall to wall, compression and augmentation as well as Colour flow down to the infrageniculate veins. Left Sided Venous Evaluation The left common femoral vein is fully compressible. Spontaneous and phasic flow is present in the left common femoral vein. Interpretation Summary No duplex evidence of DVT or obstruction in the right lower extremity nor in the left Common Femoral vein. : ELVA KELLEY [place]
== END ==
LOC: SP 16:40
PROVIDERS: ATTEND Pain Medicine Pain Medicine
DX: M79.89 Other specified soft tissue disorders (principal)
CPT/HCPCS: 93971

== ENCOUNTER 2018-07-14 17:44 | Emergency (ER) | payer MEDICARE, MEDICAID ==
[2018-07-14] MEDS ORDERED: ACETAMINOPHEN 325 MG TABLET PO ONE (19:28)
--- NOTE | 2018-07-14 20:16 | RADIOLOGY REPORT (SQ) ---
EXAM DESCRIPTION: FOREARM BILATERAL 2 VIEWS COMPLETED DATE/TIME: 07/14/2018 8:00 pm REASON FOR STUDY: fall injury pain from elbows to hands COMPARISON: None. NUMBER OF VIEWS: Two views. TECHNIQUE: Two radiographic images acquired of the right and left forearm, including elbow and wrist in at least one projection. LIMITATIONS: None. FINDINGS: MINERALIZATION: Osteopenia. BONES: No acute fracture. No worrisome bone lesions. SOFT TISSUES: No obvious swelling or foreign body. OTHER: No other significant finding. IMPRESSION: No fracture identified. TECHNICAL DOCUMENTATION: JOB ID: [id number] [place]-72 2010 [employer]- All Rights Reserved Reading location - IP/workstation name: [id number] [email or web address]
--- NOTE | 2018-07-14 20:23 | RADIOLOGY REPORT (SQ) ---
EXAM DESCRIPTION: HAND BILATERAL 3 VIEWS COMPLETED DATE/TIME: 07/14/2018 8:00 pm REASON FOR STUDY: fall injury pain from elbows to hands COMPARISON: None. EXAM PARAMETERS: NUMBER OF VIEWS: Three views. TECHNIQUE: AP, lateral and oblique radiographic images acquired of the right and left wrist LIMITATIONS: None. FINDINGS: MINERALIZATION: Osteopenia. BONES: There is some regularity in the dorsal aspect of the right triquetrum seen best on the lateral projection, possible nondisplaced fracture, correlate with site of clinical pain. No other fracture or dislocation. No worrisome bone lesions. JOINTS: No effusion. SOFT TISSUES: No significant soft tissue swelling. No radiopaque foreign body. OTHER: No other significant finding. IMPRESSION: There is some regularity in the dorsal aspect of the right triquetrum seen best on the l ateral projection, possible nondisplaced fracture, correlate with site of clinical pain. No other fr acture or dislocation. TECHNICAL DOCUMENTATION: JOB ID: [id number] [place]-72 2010 [employer]- All Rights Reserved Reading location - IP/workstation name: [email or web address]
--- NOTE | 2018-07-14 20:26 | RADIOLOGY REPORT (SQ) ---
EXAM DESCRIPTION: KNEE RIGHT 4 VIEWS COMPLETED DATE/TIME: 07/14/2018 8:00 pm REASON FOR STUDY: medial knee pain s/p fall COMPARISON: None. EXAM PARAMETERS: NUMBER OF VIEWS: Three views. TECHNIQUE: AP, lateral and oblique radiographic images acquired of the right knee. LIMITATIONS: None. FINDINGS: MINERALIZATION: Normal. BONES: No acute fracture or dislocation. No worrisome bone lesions. JOINTS: No effusion. SOFT TISSUES: No significant soft tissue swelling. No radiopaque foreign body. OTHER: No other significant finding. IMPRESSION: NO FRACTURE. TECHNICAL DOCUMENTATION: JOB ID: [id number] [place]-72 2010 [employer]- All Rights Reserved Reading location - IP/workstation name: [email or web address]
--- NOTE | 2018-07-14 20:54 | ER Document Report ---
HPI - HPI Pain Level: 3 Notes: Patient is a 58-year-old female with past medical history of stroke with left- sided residual weakness. Patient presents with chief complaint of pain after falling today. Patient reports that she was standing at the back of her van smoking a cigarette when she tripped and fell over a curb. Patient is complaining of pain to the right wrist, left wrist and arm and right knee. Patient denies hitting her head. - CONSTITUTIONAL Constitutional: DENIES: Fever, Chills - EENT EENT: DENIES: Sore Throat, Ear Pain, Eye problems - NEURO Neurology: DENIES: Headache, Weakness, Vision blurred, Dizzinesss / Vertigo - CARDIOVASCULAR Cardiovascular: DENIES: Chest pain - RESPIRATORY Respiratory: DENIES: Trouble Breathing, Coughing - GASTROINTESTINAL Gastrointestinal: DENIES: Abdominal Pain, Black / Bloody Stools - URINARY Urinary: DENIES: Dysuria, Urgency, Frequency - REPRODUCTIVE Reproductive: DENIES: : - MUSCULOSKELETAL Musculoskeletal: REPORTS: Extremity pain Past Medical History - General Information source: Patient - Social History Smoking Status: Current Every Day Smoker Chew tobacco use (# tins/day): No Frequency of alcohol use: None Drug Abuse: None Family History: Reviewed & Not Pertinent, CAD, CVA, DM, Hyperlipidemia, Hypertension, Malignancy, Thyroid Disfunction Patient has suicidal ideation: No Patient has homicidal ideation: No - Past Medical History Cardiac Medical History: Reports: Hx Coronary Artery Disease - on meds Denies: Hx Heart Attack, Hx Hypertension Pulmonary Medical History: Reports: Hx Bronchitis - hx of, Hx COPD - inhalers, Hx Pneumonia - hx of Denies: Hx Asthma Neurological Medical History: Reports: Hx Cerebrovascular Accident - 2003 and 2008; left sided deficit, Hx Migraine. Denies: Hx Seizures Renal/ Medical History: Denies: Hx Peritoneal Dialysis GI Medical History: Reports: Hx Diverticulitis, Hx Hiatal Hernia, Hx Ulcer, Hx Colonoscopy, Hx Endoscopy Musculoskeletal Medical History: Reports Hx Arthritis - back, Reports Hx Musculoskeletal Deformity, Reports Hx Musculoskeletal Trauma Psychiatric Medical History: Reports: Hx Anxiety, Hx Depression Traumatic Medical History: Reports: Hx Fractures Past Surgical History: Reports: Hx Appendectomy, Hx Bowel Surgery - resection, Hx Cardiac Surgery - mechanical aortic valve, Hx Hysterectomy, Hx Nose Surgery, Hx Oral Surgery - wisdom teeth and TMJ, Hx Orthopedic Surgery - carpal tunnel right wrist, right elbow nerve, Hx Tonsillectomy, Hx Valve Replacement - Immunizations Immunizations up to date: Yes Hx Diphtheria, Pertussis, Tetanus Vaccination: Yes - 2011 Hx Pneumococcal Vaccination: 09/13/04 Vertical Provider Document - CONSTITUTIONAL Notes: PHYSICAL EXAMINATION: GENERAL: Well-appearing, well-nourished and in no acute distress. HEAD: Atraumatic, normocephalic. EYES: Pupils equal round extraocular movements intact, conjunctiva are normal. ENT: Nares patent NECK: Normal range of motion LUNGS: No respiratory distress Musculoskeletal: Normal range of motion, swelling noted to left forearm, right wrist and right knee. Abrasion noted to right knee. All peripheral pulses are palpable. Cap refill is less than 3 seconds on all 4 extremities. Patient has normal motor and sensation to all extremities except for her left arm which has residual weakness from previous stroke, patient states this is unchanged from her normal. NEUROLOGICAL: Normal speech, normal gait. PSYCH: Normal mood, normal affect. SKIN: Warm, Dry, normal turgor, no rashes or lesions noted. - INFECTION CONTROL TRAVEL OUTSIDE OF THE [place] IN LAST 30 DAYS: No Course - Re-evaluation Re-evalutation: X-ray shows possible triquetrum fracture of the left wrist. Patient placed in a volar splint, see procedure note. Patient will follow-up with Storm Blanc tomorrow , she states she Donald has an appointment scheduled. Patient declines need for any pain medication as she states she is Donald on chronic pain medications and has morphine at home. - Vital Signs Vital signs: Temp Pulse Resp BP Pulse Ox 98.7 F 101 H 18 128/88 H 92 07/14/18 17:57 07/14/18 17:57 07/14/18 17:57 07/14/18 17:57 07/14/18 17:57 Procedures - Immobilization Left wrist Pre-Proc Neuro Vasc Exam: Normal Immobilizer type: Volar splint Performed by: PCT Post-Proc Neuro Vasc Exam: Normal Alignment checked and good: Yes Discharge - Discharge Clinical Impression: Arm fracture, right Qualifiers: Encounter type: initial encounter Fracture type: closed Qualified Code(s): S42.301A - Unspecified fracture of shaft of humerus, right arm, initial encounter for closed fracture Condition: Stable Disposition: HOME, SELF-CARE Additional Instructions: Fracture You have a fracture. The typical broken bone requires only protection and sufficient time for healing. "Setting" is necessary only if the bones are crooked or out of position. The physician will re-assess you periodically to make certain that the bone heals without complications. It's important that you follow the instructions given you. The initial treatment is immobilization, elevation of the injury, and cold packs. Not all fractures require a cast. Depending on the location and type of fracture, immobilization may consist of a splint, cast, sling, bulky dressing , or simply rest. The length of time required for healing depends on the location and type of fracture, and on the age of the patient. The treatment plan the physician has outlined for you is customized to your fracture and health condition. Call the doctor or return at once if pain becomes severe, or if severe swelling or numbness develop. Ice & Elevation Apply ice packs frequently against the painful area. Many different schedules are recommended, such as "20 minutes on, 20 minutes off" or "one hour ice, two hours rest." If you need to work, you may need to go longer between ice treatments. You should plan to have the area ice packed AT LEAST one- fourth of the time. The ice should be applied over the wrap, tape, or splint, or over a layer of cloth -- not directly against the skin. Some ice bags have a built-in cloth and can be put directly on the skin. Your injured part should be elevated as much as possible over the next 48 hours. Try to keep the injury above the level of the heart. Avoid use of the injured area. Elevation and rest will decrease the swelling. Please keep the splint in place until seen by orthopedic tomorrow. Take the morphine that you have at home as prescribed. Referrals: ANALI SANDOVAL MD [Primary Care Provider] - Follow up as needed
[2018-07-15 03:29] VITALS: BP 127/102
== END 2018-07-14 21:30 | disposition home or self-care (01) ==
LOC: ER 17:44
DX: S42.301A Unspecified fracture of shaft of humerus, right arm, initial encounter for closed fracture (principal); M25.532 Pain in left wrist; M25.531 Pain in right wrist; F17.210 Nicotine dependence, cigarettes, uncomplicated; W01.0XXA Fall on same level from slipping, tripping and stumbling without subsequent striking against object, initial encounter
CPT/HCPCS: 99283; 73564; 73090; 73130; 29126; A9270

== ENCOUNTER → 2019-06-19 | Outpatient (CLI) | payer MEDICARE, MEDICAID ==
[2019-06-19 14:51] LABS: ANION GAP 14 (5-19); BLOOD UREA NITROGEN 21 mg/dL (7-20); CALCIUM 9.9 mg/dL (8.4-10.2); CARBON DIOXIDE 22 mmol/L (22-30); CHLORIDE 104 mmol/L (98-107); GLUCOSE 135 mg/dL (75-110); POTASSIUM 4.1 mmol/L (3.6-5.0)
== END ==
LOC: OD 12:30
PROVIDERS: ATTEND Internal Medicine Cardiovascular Disease
DX: Z48.812 Encounter for surgical aftercare following surgery on the circulatory system (principal); Z95.2 Presence of prosthetic heart valve; Z79.899 Other long term (current) drug therapy
CPT/HCPCS: 36415; 80048

== ENCOUNTER 2019-08-08 12:15 | Day surgery (SDC) | payer MEDICARE, MEDICAID ==
[2019-08-08] MEDS ORDERED: METHYLPREDNISOLONE ACETATE INJ 40 MG/1 ML ML ONE (13:41)
[2019-08-08] MEDS ORDERED: BUPIVACAINE HCL 0.5 % INJ/PF 30 ML SDV ONE (13:41)
[2019-08-08] MEDS ORDERED: LIDOCAINE 2% INJ (20 MG/ML) 20 ML MDV ONE (13:41)
[2019-08-08] MEDS ORDERED: MIDAZOLAM 2 MG/2 ML INJ ONE (13:47)
[2019-08-08] MEDS ORDERED: FENTANYL CITRATE INJ/PF 100 MCG/2 ML AMPUL ONE (13:47)
--- NOTE | 2019-08-08 15:02 | Operative Report ---
KNEE RADIOFREQUENCY PROCEDURE: 1. Superolateral genicular branch from the vastus lateralis 2. Superomedial genicular branch from the vastus medialis 3. Inferomedial genicular branch from the saphenous nerve 4. Medial retinacular branch from the vastus intermedius DATE OF PROCEDURE: 08/08/2019 ANESTHESIA: Local plus fentanyl IV COMPLICATIONS: None PROCEDURE IN DETAIL: Hx/PE/meds/allergies/applicable labs reviewed. No changes and no contraindications were found. Full description of the procedure was provided including benefits as well as possible complications including transient increased pain, stomach irritation, mood alteration, transient weakness or parasthesias as well as more serious nerve injury, bleeding, infection or allergic reaction. Informed consent was obtained and documented. The patient was brought to the procedure room and placed on the exam table in a comfortable supine position. The place for needle placement was obtained by manual palpation with radiographic confirmation. The sterile field was prepared by chloroprep and sterile drapes. Local anesthesia superficial and deep was provided by local infiltration of 1% lidocaine. A 17g 50mm radiofrequency introducer needle with a 4 mm active tip was placed overlying the Right knee joint and using fluoroscopic guidance the needle was advanced to a bony endpoint on the superiolateral portion of the femoral condyle of the Right/left knee. A second needle was advanced to a bony endpoint on the superiomedial portion of the femoral condyle. A third needle was then placed over the inferiomedial portion of the tibial condyle until a bony endpoint was met. Fourth needle placed midline of the femur approximately 2cm superior to the upper border of the patella. Attempted aspiration yielded no blood. Lateral x- ray views showed all the needles at 50% depth of the femur and tibia. Motor stimulation was tested at 2.0 volts with no leg movement. Images were saved in AP and lateral. A mixture consisting of [2% lidocaine and depomedrol was slowly injected. Then a radiofrequency ablation of each of the geniculate nerves were done at 80 degrees Celsius for 2 minutes and 30 seconds each. The needles were withdrawn. The patient tolerated the procedure well. After observation the patient was discharged with instructions and follow up. They were also provided contact information to call regarding any concerning symptoms or questions. IMPRESSION: 1. Successful geniculate knee radiofrequency ablation was performed. 2. prescription was previously given at follow-up. 3. RTC in 6 week(s).
[2019-08-08 16:26] VITALS: BP 131/90
== END 2019-08-08 15:55 | disposition home or self-care (01) ==
LOC: RAD 12:15
PROVIDERS: ATTEND Student in an Organized Health Care Education/Training Program
DX: M17.11 Unilateral primary osteoarthritis, right knee (principal); M25.561 Pain in right knee
CPT/HCPCS: 64640 ×3; J3490 ×2; J3010; J1030; J2250

== ENCOUNTER 2019-08-14 19:14 | Emergency (ER) | payer MEDICARE, MEDICAID ==
[2019-08-14] MEDS ORDERED: NORMAL SALINE 1000 ML 1,000 ML IV ONE (19:42)
[2019-08-14] MEDS ORDERED: MORPHINE SULFATE 10 MG/ML INJ IV ONE (19:42)
[2019-08-14 20:11] LABS: ABSOLUTE BASOPHILS # (AUTO) 0.1 10^3/uL (0.0-0.2); ABSOLUTE EOSINOPHILS # (AUTO) 0.2 10^3/uL (0.0-0.6); ABSOLUTE LYMPHOCYTES (AUTO) 3.3 10^3/uL (0.5-4.7); ABSOLUTE MONOCYTES (AUTO) 0.7 10^3/uL (0.1-1.4); BASOPHILS % (AUTO) 1.2 % (0-2); EOSINOPHILS % (AUTO) 1.9 % (0-6); HEMATOCRIT 41.9 % (36.0-47.0); HEMOGLOBIN 13.9 g/dL (12.0-15.5); LYMPHOCYTES % (AUTO) 26.7 % (13-45); MEAN CORPUSCULAR HEMOGLOBIN 29.7 pg (27.0-33.4); MEAN CORPUSCULAR HGB CONC 33.1 g/dL (32.0-36.0); MEAN CORPUSCULAR VOLUME 90 fl (80-97); MONOCYTES % (AUTO) 5.5 % (3-13); PLATELET COUNT 366 10^3/uL (150-450); RED BLOOD COUNT 4.67 10^6/uL (3.72-5.28); RED CELL DISTRIBUTION WIDTH 13.6 % (11.5-14.0); SEGMENTED NEUTROPHILS % (AUTO) 64.7 % (42-78); TOTAL CELLS COUNTED % (AUTO) 100 %; WHITE BLOOD COUNT 12.4 10^3/uL (4.0-10.5)
--- NOTE | 2019-08-14 20:22 | ER Document Report ---
ED GI/ - General Chief Complaint: Abdominal Pain Stated Complaint: ABDOMINAL PAIN Time Seen by Provider: 08/14/19 19:23 Primary Care Provider: ANALI SANDOVAL MD [Primary Care Provider] - Follow up in 3-5 days Notes: This 59-year-old female who presents emergency department with a chief complaint of epigastric pain. Patient states that she was treated for a urinary tract infection with Keflex and 2 days ago she started Augmentin. She has felt nausea and had some upper epigastric pain for the past 3 days. She was brought in via EMS and she was given Zofran. She states that it is little better, but she sti ll has a little bit of discomfort. She states that it is not pain, but more nauseated feeling. Patient has history of a gastric ulcer in the past. Patient denies any hematochezia or melena stools. Denies hematemesis. Any vomiting. Patient states she is having some diarrhea, but not to the point to where she is able to hold her bowels. Patient has history of a stroke, with left-sided deficit. She is currently on blood thinners, but does not know her current medications. She has home health and they give her the medications. TRAVEL OUTSIDE OF THE [place] IN LAST 30 DAYS: No - Related Data Allergies/Adverse Reactions: adhesive tape Allergy (Severe, Verified 08/08/19 12:31) Blisters codeine Allergy (Severe, Verified 08/08/19 12:31) itching latex [Latex] Allergy (Severe, Verified 08/08/19 12:31) skin irritation rizatriptan benzoate [From Maxalt] Allergy (Severe, Verified 08/08/19 12:31) Tachycardia sumatriptan succinate [From Imitrex STATdose Pen] Allergy (Severe, Verified 08/08/19 12:31) Anaphylaxis zolmitriptan [From Zomig] Allergy (Severe, Verified 08/08/19 12:31) Tachycardia Benzoate Analogues Allergy (Unknown, Verified 08/08/19 12:31) Home Medications: augmentin. morphine ir. flomax. metformin. cymbalta. xanax tid Past Medical History - Social History Smoking Status: Current Every Day Smoker Chew tobacco use (# tins/day): No Frequency of alcohol use: None Drug Abuse: None Family History: Reviewed & Not Pertinent, CAD, CVA, DM, Hyperlipidemia, Hypertension, Malignancy, Thyroid Disfunction Patient has suicidal ideation: No Patient has homicidal ideation: No - Past Medical History Cardiac Medical History: Reports: Hx Coronary Artery Disease - on meds Denies: Hx Heart Attack, Hx Hypertension Pulmonary Medical History: Denies: Hx Asthma, Hx Bronchitis - hx of, Hx COPD - inhalers, Hx Pneumonia - hx of Neurological Medical History: Reports: Hx Cerebrovascular Accident - 2000 and 2008; left sided deficit, Hx Migraine. Denies: Hx Seizures Endocrine Medical History: Reports: Hx Diabetes Mellitus Type 2 Renal/ Medical History: Denies: Hx Peritoneal Dialysis GI Medical History: Reports: Hx Diverticulitis, Hx Hiatal Hernia, Hx Ulcer, Hx Colonoscopy, Hx Endoscopy Musculoskeletal Medical History: Reports Hx Arthritis - back, HIP AND KNEES, Reports Hx Musculoskeletal Deformity, Reports Hx Musculoskeletal Trauma Psychiatric Medical History: Reports: Hx Anxiety, Hx Depression Traumatic Medical History: Reports: Hx Fractures Past Surgical History: Reports: Hx Appendectomy, Hx Bowel Surgery - resection, Hx Cardiac Surgery - mechanical aortic valve, Hx Hysterectomy, Hx Nose Surgery, Hx Oral Surgery - wisdom teeth and TMJ, Hx Orthopedic Surgery - carpal tunnel right wrist, right elbow nerve, Hx Tonsillectomy, Hx Valve Replacement - Immunizations Immunizations up to date: Yes Hx Diphtheria, Pertussis, Tetanus Vaccination: Yes - 2011 Hx Pneumococcal Vaccination: 09/13/04 Review of Systems - Review of Systems Notes: REVIEW OF SYSTEMS: CONSTITUTIONAL : Denies recent illness. Denies recent unintentional weight loss. Denies fever, chills, or sweats. EENT: Denies eye, ear, throat, or mouth pain, discharge, or symptoms. Denies nasal or sinus congestion. CARDIOVASCULAR: Denies chest pain. RESPIRATORY: Denies shortness of breath, cough, congestion, difficulty breathing, or wheezing. GASTROINTESTINAL: See HPI. GENITOURINARY: See HPI. MUSCULOSKELETAL: Denies neck and back pain. Denies joint pain or swelling. SKIN: Denies rash, itchiness, or lesions HEMATOLOGIC : Denies easy bruising or bleeding. LYMPHATIC: Denies swollen, painful, enlarged glands. NEUROLOGICAL: Denies no numbness or tingling denies weakness. Denies headache. Denies altered mental status. Denies alteration in speech. PSYCHIATRIC: Denies stress, anxiety, alteration in sleep patterns, or depression. All other systems reviewed and negative. Physical Exam - Vital signs Vitals: BP 128/83 H 08/14/19 13:26 - Notes Notes: PHYSICAL EXAMINATION: GENERAL: Appears well, healthy, well-nourished, no acute distress. HEAD: Normocephalic, atraumatic. EYES: PERRL, conjunctiva normal, all extraocular movements intact, sclera nonicteric ENT: Moist mucous membranes. NECK: Supple, no noticeable swelling, redness, rash. Normal range of motion. LUNGS: Equal breath sounds bilaterally and clear to auscultation. No wheezes rales or rhonchi. CARDIOVASCULAR: S1-S2, regular rate, regular rhythm. Radial pulses 2+, normal. ABDOMEN: Normoactive bowel sounds. Soft, tender mid upper abdomen, no guar ding, no rebound tenderness, and no masses palpated. EXTREMITIES: No pitting or edema. No cyanosis. Left-sided deficit due to previous stroke. NEUROLOGICAL: Left-sided deficit due to previous stroke. PSYCH: Normal mood, normal affect. SKIN: Warm, dry. No rash, lesions, ulcerations noted. Normal skin turgor. Course - Re-evaluation Re-evalutation: 08/14/19 23:[address] of the abdomen pelvis showed that she has nephrolithiasis, but they are stable with no hydronephrosis or hydroureter ureter. Patient's urinalysis i s unremarkable. It was sent for culture, due to the patient being on antibiotics. Patient's troponins unremarkable. Lipase is also unremarkable. Chemistries were normal. Hematology is shows a slight leukocytosis of 12,400. I suspect the patient has gastritis, as the patient states that the pain is more of a nausea feeling. She will receive Carafate and Pepcid and go home with Carafate. She is currently on Prilosec. I advised her to continue her present Prilosec. I suspect the Augmentin she is taking is irritating her gastric lining. Patient denies any hematochezia. Follow-up precautions were given. Verbal discharge instructions were given to the patient. They verbalized understanding. They are stable for discharge. - Vital Signs Vital signs: Temp Pulse Resp BP Pulse Ox 98.1 F 89 22 H 94/83 L 95 08/14/19 19:22 08/14/19 19:22 08/15/19 00:00 08/14/19 23:02 08/14/19 23:02 - Laboratory Result Diagrams: 08/14/19 19:52 08/14/19 19:52 Laboratory results interpreted by me: 08/14/19 08/14/19 19:52 19:52 WBC 12.4 H AST 37 H - EKG Interpretation by Me Additional EKG results interpreted by me: 08/14/19 23:44 Sinus rhythm. Rate 99. WV 132; QRS 100; QT 360; QTc 462. No ST elevations or depressions noted. No acute change from previous EKG done on 11/09/2016. Discharge - Discharge Clinical Impression: Nausea Gastritis Qualifiers: Gastritis type: unspecified gastritis Chronicity: acute Gastritis bleeding: without bleeding Qualified Code(s): K29.00 - Acute gastritis without bleeding Condition: Stable Disposition: HOME, SELF-CARE Additional Instructions: You were seen today in the emergency department for nausea and abdominal pain. Your abdominal pain is most likely due to gastritis, which is inflammation in your stomach. You are being started on Carafate to help with your symptoms. Make sure you take your medications as prescribed. Follow-up with your primary care provider you can take your Phenergan at home. Please take your current medication you are taking to help with the pain. If you have worsening symptoms, please return to the emergency department. Prescriptions: Sucralfate [Carafate 1 gm Tablet] 1 gm PO ACHS #60 tablet Referrals: ANALI SANDOVAL MD [Primary Care Provider] - Follow up in 3-5 days
[2019-08-14 20:33] LABS: ALBUMIN 4.4 g/dL (3.5-5.0); ALKALINE PHOSPHATASE 69 U/L (38-126); ANION GAP 10 (5-19); ASPARTATE AMINO TRANSFERASE 37 U/L (14-36); BILIRUBIN,DIRECT 0.2 mg/dL (0.0-0.4); BILIRUBIN,TOTAL 0.5 mg/dL (0.2-1.3); BLOOD UREA NITROGEN 13 mg/dL (7-20); CARBON DIOXIDE 25 mmol/L (22-30); CHLORIDE 106 mmol/L (98-107); CREATINE KINASE 63 U/L (30-135); GLUCOSE 109 mg/dL (75-110); POTASSIUM 3.9 mmol/L (3.6-5.0); TOTAL PROTEIN 7.1 g/dL (6.3-8.2)
[2019-08-14] MEDS ORDERED: PROMETHAZINE HCL INJ 25 MG/1 ML VIAL IV ONE (20:35)
[2019-08-14 22:21] LABS: APPEARANCE,URINE CLEAR; BILIRUBIN,URINE NEGATIVE (NEGATIVE); COLOR,URINE YELLOW; GLUCOSE, URINE NEGATIVE (NEGATIVE); KETONES,URINE NEGATIVE (NEGATIVE); PROTEIN,URINE NEGATIVE (NEGATIVE); URINE SPECIFIC GRAVITY 1.011; UROBILINOGEN,URINE NEGATIVE mg/dL (<2.0)
--- NOTE | 2019-08-14 22:29 | EKG REPORT ---
SEVERITY:- ABNORMAL ECG - SINUS RHYTHM NONSPECIFIC T ABNORMALITIES, ANT-LAT LEADS : Confirmed by: Lucinda Zapata MD 14-Aug-2019 22:28:49
--- NOTE | 2019-08-14 23:18 | RADIOLOGY REPORT (SQ) ---
EXAM DESCRIPTION: CT ABDOMEN PELVIS WITH IV CONTRAST COMPLETED DATE/TME: 08/14/2019 22:11 CLINICAL HISTORY: 59 years Female, abdominal pain Comparison: 12/19/16 Technique: IV contrast. Coronal and sagittal reformat. This exam was performed according to our departmental dose-optimization program, which includes automated exposure control, adjustment of the mA and/or kV according to patient size and/or use of iterative reconstruction technique. [facility]: Dose Right [facility]: CareDose [facility]: Dose Right [facility]: Teradose 4D [facility]: [employer] Discovery LIMITATIONS: None Findings: Sternotomy. Cardiac/mediastinal hardware/clips. Atelectasis/scar. Colonic fluid retention. Punctate, scant bilateral nephrolithiasis. No hydronephrosis/hydroureter. Fat replacement of the pancreatic head. Bilateral lower anterior pelvic herniorrhaphy clips. No ascites. No pneumoperitoneum. No evidence of appendicitis. Appendix not definitively discerned. No gross evidence of gallbladder inflammation, hepatobiliary obstruction, or portal vein defect. No bowel obstruction. No evidence of abdominal aortic aneurysm. No gross evidence of thecal sac/cord or nerve root compression. Inferior thorax, liver, gallbladder, pancreas, spleen, adrenals, renal system, gastrointestinal tract, pelvic organs, lymphatics, vasculature, and musculoskeleton appear otherwise unremarkable. IMPRESSION: No acute findings. Punctate nephrolithiasis.
[2019-08-14 23:19] VITALS: BP 94/83
== END 2019-08-15 00:13 | disposition home or self-care (01) ==
LOC: ER 19:14
DX: K29.00 Acute gastritis without bleeding (principal); R11.0 Nausea; R10.13 Epigastric pain; R19.7 Diarrhea, unspecified; F17.200 Nicotine dependence, unspecified, uncomplicated; I25.10 Atherosclerotic heart disease of native coronary artery without angina pectoris; Z79.899 Other long term (current) drug therapy; E11.9 Type 2 diabetes mellitus without complications
CPT/HCPCS: 93005; 99284; 96361; 96374; 96375; 36415; 82550; 83690; 85025; 80053; 81001; 84484; 74177; 93010; J2270; J2550; J7030

== ENCOUNTER → 2019-10-23 | Outpatient (CLI) | payer MEDICARE, MEDICAID ==
--- NOTE | 2019-10-23 13:24 | RADIOLOGY REPORT (SQ) ---
EXAM DESCRIPTION: SHOULDER RIGHT 2 OR MORE VIEWS COMPLETED DATE/TIME: 10/23/2019 12:48 pm REASON FOR STUDY: PAIN IN RT SHOULDER; PAIN IN T-SPINE; LOW BACK PAIN M54.5 LOW BACK PAIN M25.511 PAIN IN RIGHT SHOULDER COMPARISON: None. NUMBER OF VIEWS: Three views. TECHNIQUE: Internal rotation and Y view images acquired of the right shoulder. LIMITATIONS: None. FINDINGS: MINERALIZATION: Normal. BONES: No acute fracture. No worrisome bone lesions. JOINTS: No dislocation. VISUALIZED LUNGS AND RIBS: No pneumothorax. No rib fracture. SOFT TISSUES: No radiopaque foreign body. OTHER: No other significant finding. IMPRESSION: 1. No acute osseous findings. TECHNICAL DOCUMENTATION: JOB ID: [id number] 2010 [employer]- All Rights Reserved Reading location - IP/workstation name: [email or web address]
--- NOTE | 2019-10-23 13:26 | RADIOLOGY REPORT (SQ) ---
EXAM DESCRIPTION: T SPINE AP/LAT COMPLETED DATE/TIME: 10/23/2019 12:48 pm REASON FOR STUDY: PAIN IN RT SHOULDER; PAIN IN T-SPINE; LOW BACK PAIN M54.5 LOW BACK PAIN M25.511 PAIN IN RIGHT SHOULDER COMPARISON: None. NUMBER OF VIEWS: Two views. TECHNIQUE: AP and lateral radiographic images acquired of the thoracic spine. LIMITATIONS: None. FINDINGS: MINERALIZATION: Normal. ALIGNMENT: Slight to mild scoliosis, apex to the right. VERTEBRAE: No fracture or bone lesion. Maintained height, normal segmentation. DISCS: No significant loss of height or significant narrowing. No large osteophytes. HARDWARE:Hardware anterior fusion lower cervical spine common prior anterior median sternotomy and va lvular replacement. MEDIASTINUM AND SOFT TISSUES: Normal heart size and aortic contour. No soft tissue abnormality. VISUALIZED LUNG CARDENAS: Clear. OTHER: No other significant finding. IMPRESSION: 1. Mild dextroconvex scoliosis. No acute osseous findings. TECHNICAL DOCUMENTATION: JOB ID: [id number] 2010 [employer]- All Rights Reserved Reading location - IP/workstation name: [email or web address]
--- NOTE | 2019-10-23 13:28 | RADIOLOGY REPORT (SQ) ---
EXAM DESCRIPTION: LUMBAR SPINE COMPLETE COMPLETED DATE/TIME: 10/23/2019 12:48 pm REASON FOR STUDY: PAIN IN RT SHOULDER; PAIN IN T-SPINE; LOW BACK PAIN M54.5 LOW BACK PAIN M25.511 PAIN IN RIGHT SHOULDER COMPARISON: None. NUMBER OF VIEWS: Five views including obliques. TECHNIQUE: AP, lateral, oblique, and sacral radiographic images acquired of the lumbar spine. LIMITATIONS: None. FINDINGS: MINERALIZATION: Normal. SEGMENTATION: Normal. No transitional anatomy. ALIGNMENT: Normal. VERTEBRAE: Maintained height. No fracture or worrisome bone lesion. DISCS: Mild disc space narrowing at L4-5 and L5-S1. No significant osteophytes or end plate irregul arity. POSTERIOR ELEMENTS: Pedicles and facets are intact. No pars defect or posterior arch defects. HARDWARE: None in the spine. PARASPINAL SOFT TISSUES: Normal. PELVIS: Intact as visualized. No fractures or worrisome bone lesions. SI joints intact. OTHER: No other significant finding. IMPRESSION: 1. Mild disc space narrowing at L4-5 and L5-S1. 2. No acute osseous findings. TECHNICAL DOCUMENTATION: JOB ID: [id number] 2010 [employer]- All Rights Reserved Reading location - IP/workstation name: [email or web address]
== END ==
LOC: OD 12:19
PROVIDERS: ATTEND Physician Assistant Medical
DX: M54.5 Low back pain (principal); M25.511 Pain in right shoulder; M41.84 Other forms of scoliosis, thoracic region; M54.6 Pain in thoracic spine
CPT/HCPCS: 72070; 72110

== ENCOUNTER 2020-02-01 08:32 | Emergency (ER) | payer MEDICARE, MEDICAID ==
[2020-02-01 09:07] VITALS: BP 130/68
[2020-02-01] MEDS ORDERED: MORPHINE SULFATE 10 MG/ML INJ IV ONE (09:13)
--- NOTE | 2020-02-01 09:15 | ER Document Report ---
ED Fall - General Chief Complaint: Fall Stated Complaint: KNEE PAIN/FALL Time Seen by Provider: 02/01/20 08:53 Primary Care Provider: ANALI SANDOVAL MD [Primary Care Provider] - Follow up as needed Mode of Arrival: Medic Information source: Patient Notes: 59-year-old female past medical history significant for CVA with left-sided weakness, hyperlipidemia, GERD, aortic valve replacement on Coumadin, presents the emergency room presents to the emergency room via EMS with 2 recent falls. Patient states she fell and lost her balance on Wednesday injuring her left sh oulder and left hip, states she fell again today injuring her right knee. She denies chest pain, shortness of breath, dizziness or difficulty breathing prior to the falls. States she walks with a walker and she lost her balance. States she does live alone after her family lives nearby and they are attempting to get her into a half-way facility but has been delayed due to COVID-19 pandemic. States she takes morphine at home regularly for her chronic right shoulder pain which has been helping with her left shoulder and left hip pain patient states she did not take any pain medication today. She has no other complaints. TRAVEL OUTSIDE OF THE [place] IN LAST 30 DAYS: No - Related data Allergies/Adverse Reactions: adhesive tape Allergy (Severe, Verified 08/08/19 12:31) Blisters codeine Allergy (Severe, Verified 08/08/19 12:31) itching latex [Latex] Allergy (Severe, Verified 08/08/19 12:31) skin irritation rizatriptan benzoate [From Maxalt] Allergy (Severe, Verified 08/08/19 12:31) Tachycardia sumatriptan succinate [From Imitrex STATdose Pen] Allergy (Severe, Verified 08/08/19 12:31) Anaphylaxis zolmitriptan [From Zomig] Allergy (Severe, Verified 08/08/19 12:31) Tachycardia Benzoate Analogues Allergy (Unknown, Verified 08/08/19 12:31) Past Medical History - General Information source: Patient - Social History Smoking Status: Current Some Day Smoker Frequency of alcohol use: None Drug Abuse: None Lives with: Alone Family History: Reviewed & Not Pertinent, CAD, CVA, DM, Hyperlipidemia, Hypertension, Malignancy, Thyroid Disfunction Patient has homicidal ideation: No - Past Medical History Cardiac Medical History: Reports: Hx Coronary Artery Disease - on meds Denies: Hx Heart Attack, Hx Hypertension Pulmonary Medical History: Denies: Hx Asthma, Hx Bronchitis - hx of, Hx COPD - inhalers, Hx Pneumonia - hx of Neurological Medical History: Reports: Hx Cerebrovascular Accident - 2000 and 2008; left sided deficit, Hx Migraine. Denies: Hx Seizures Endocrine Medical History: Reports: Hx Diabetes Mellitus Type 2 Renal/ Medical History: Denies: Hx Peritoneal Dialysis GI Medical History: Reports: Hx Diverticulitis, Hx Hiatal Hernia, Hx Ulcer, Hx Colonoscopy, Hx Endoscopy Musculoskeletal Medical History: Reports Hx Arthritis - back, HIP AND KNEES, R eports Hx Musculoskeletal Deformity, Reports Hx Musculoskeletal Trauma Psychiatric Medical History: Reports: Hx Anxiety, Hx Depression Traumatic Medical History: Reports: Hx Fractures Past Surgical History: Reports: Hx Appendectomy, Hx Bowel Surgery - resection, Hx Cardiac Surgery - mechanical aortic valve, Hx Hysterectomy, Hx Nose Surgery, Hx Oral Surgery - wisdom teeth and TMJ, Hx Orthopedic Surgery - carpal tunnel right wrist, right elbow nerve, Hx Tonsillectomy, Hx Valve Replacement - Immunizations Immunizations up to date: Yes Hx Diphtheria, Pertussis, Tetanus Vaccination: Yes - 2011 Hx Pneumococcal Vaccination: 09/13/04 Review of Systems - Review of Systems Constitutional: No symptoms reported Cardiovascular: No symptoms reported Respiratory: No symptoms reported Genitourinary: No symptoms reported Musculoskeletal: Joint pain Skin: No symptoms reported Neurological/Psychological: No symptoms reported -: Yes All other systems reviewed and negative Physical Exam - Vital signs Vitals: BP 130/68 H 02/01/20 08:41 - General General appearance: Appears well, Alert In distress: Mild - Respiratory Respiratory status: No respiratory distress Chest status: Nontender Breath sounds: Normal Chest palpation: Normal - Cardiovascular Rhythm: Regular Heart sounds: Normal auscultation Murmur: No - Back Back: Normal, Nontender. No: CVA tenderness - Extremities Shoulder: Tender - Tenderness on the left posterior shoulder. Decreased range of motion secondary to weakness from CVA. Unable to fully evaluate the shoulder., Limited ROM Hip: Tender - Tenderness over the left iliac crest. Nontender with range of motion. Not shortened or rotated.. No: Deformity, Pain with ROM Knee: Normal, Nontender, Pain with ROM - Neurological Neuro grossly intact: Yes Cognition: Normal Orientation: AAOx4 - Skin Skin Temperature: Warm Skin Moisture: Dry Skin Color: Normal Course - Re-evaluation Re-evalutation: 02/01/20 11:27 Patient is resting comfortably pain-free at this time. Reviewed all x-rays and lab results with patient. Stable for discharge. She was counseled to follow-up outpatient with her primary care physician for any new or worsening symptoms. Patient was given strict return to the emergency room guidelines. Return for any new or worsening symptoms. All questions were answered. Patient verbalized understanding agrees with plan of care. Patient states she will call her daughter to bring her walker for discharge. 02/01/20 14:56 - Vital Signs Vital signs: Temp Pulse Resp BP Pulse Ox 98.6 F 74 16 138/70 H 94 02/01/20 13:56 02/01/20 13:56 02/01/20 13:56 02/01/20 13:56 02/01/20 13:56 - Laboratory Result Diagrams: 02/01/20 10:49 02/01/20 10:26 Laboratory results interpreted by me: 02/01/20 02/01/20 02/01/20 10:26 10:26 10:44 RDW PT 22.5 H Carbon Dioxide 31 H Anion Gap 3 L Ur Leukocyte Esterase TRACE H Urine Ascorbic Acid 40 H 02/01/20 10:49 RDW 14.6 H PT Carbon Dioxide Anion Gap Ur Leukocyte Esterase Urine Ascorbic Acid Discharge - Discharge Clinical Impression: Left hip pain, Gait abnormality Fall Qualifiers: Encounter type: initial encounter Qualified Code(s): W19.XXXA - Unspecified fall, initial encounter Left shoulder pain Qualifiers: Chronicity: acute Qualified Code(s): M25.512 - Pain in left shoulder Right knee pain Qualifiers: Chronicity: acute Qualified Code(s): M25.561 - Pain in right knee Condition: Stable Disposition: HOME, SELF-CARE Instructions: Contusion ([facility]), Shoulder Injury ([facility]), Sprained Knee ([facility]) Additional Instructions: Take your current home medications, outpatient follow-up with your primary care physician as needed. Return for any new or worsening symptoms. Referrals: ANALI SANDOVAL MD [Primary Care Provider] - Follow up as needed
--- NOTE | 2020-02-01 10:06 | RADIOLOGY REPORT (SQ) ---
EXAM DESCRIPTION: SHOULDER LEFT 2 OR MORE VIEWS IMAGES COMPLETED DATE/TIME: 02/01/2020 9:54 am REASON FOR STUDY: fall COMPARISON: None. NUMBER OF VIEWS: Two views. TECHNIQUE: Frontal and Y view images acquired of the left shoulder. LIMITATIONS: None. FINDINGS: MINERALIZATION: Normal. BONES: No acute fracture. No worrisome bone lesions. JOINTS: No dislocation. VISUALIZED LUNGS AND RIBS: No pneumothorax. No rib fracture. SOFT TISSUES: No radiopaque foreign body. OTHER: No other significant finding. IMPRESSION: NEGATIVE STUDY OF THE LEFT SHOULDER. NO RADIOGRAPHIC EVIDENCE OF ACUTE INJURY. TECHNICAL DOCUMENTATION: JOB ID: [id number] 2010 [employer]- All Rights Reserved Reading location - IP/workstation name: [email or web address]
--- NOTE | 2020-02-01 10:07 | RADIOLOGY REPORT (SQ) ---
EXAM DESCRIPTION: HIP LEFT AP/LATERAL IMAGES COMPLETED DATE/TIME: 02/01/2020 9:54 am REASON FOR STUDY: fall COMPARISON: 06/02/2016. NUMBER OF VIEWS: Two views. TECHNIQUE: AP pelvis and additional frog-leg view of the left hip. LIMITATIONS: None. FINDINGS: MINERALIZATION: Normal. LEFT HIP: No fracture or dislocation. No worrisome bone lesions. RIGHT HIP: No fracture or dislocation. No worrisome bone lesions. PUBIS AND ISCHIUM: No fracture. PELVIS: No fracture. SACRUM: No fracture or dislocation. No worrisome bone lesions. LOWER LUMBAR SPINE: No fracture or dislocation. No worrisome bone lesions. No significant disc disea se. SOFT TISSUES: No findings. OTHER: No other significant finding. IMPRESSION: NEGATIVE STUDY OF THE LEFT HIP AND PELVIS. NO RADIOGRAPHIC EVIDENCE OF ACUTE INJURY. TECHNICAL DOCUMENTATION: JOB ID: [id number] 2010 [employer]- All Rights Reserved Reading location - IP/workstation name: [email or web address]
--- NOTE | 2020-02-01 10:09 | RADIOLOGY REPORT (SQ) ---
EXAM DESCRIPTION: KNEE RIGHT 4 VIEWS IMAGES COMPLETED DATE/TIME: 02/01/2020 9:54 am REASON FOR STUDY: fall COMPARISON: 07/14/2018. NUMBER OF VIEWS: Four views. TECHNIQUE: AP, lateral, and both oblique radiographic images acquired of the right knee. LIMITATIONS: None. FINDINGS: MINERALIZATION: Normal. BONES: No acute fracture or dislocation. Degenerative changes with osteophytes. No worrisome bone l esions. JOINT: No effusion. SOFT TISSUES: No soft tissue swelling. No radio-opaque foreign body. OTHER: No other significant finding. IMPRESSION: DEGENERATIVE CHANGES. NO RADIOGRAPHIC EVIDENCE OF ACUTE INJURY. TECHNICAL DOCUMENTATION: JOB ID: [id number] 2010 [employer]- All Rights Reserved Reading location - IP/workstation name: [email or web address]
[2020-02-01 10:47] LABS: INTERNATIONAL RATION (INR) 1.95; PROTHROMBIN TIME 22.5 SEC (11.4-15.4)
[2020-02-01 10:55] LABS: APPEARANCE,URINE SLIGHTLY-CLOUDY; BILIRUBIN,URINE NEGATIVE (NEGATIVE); COLOR,URINE YELLOW; GLUCOSE, URINE NEGATIVE (NEGATIVE); KETONES,URINE NEGATIVE (NEGATIVE); LEUKOCYTE ESTERASE,URINE TRACE (NEGATIVE); NITRITE,URINE NEGATIVE (NEGATIVE); PROTEIN,URINE NEGATIVE (NEGATIVE); URINE SPECIFIC GRAVITY 1.011; UROBILINOGEN,URINE NEGATIVE mg/dL (<2.0)
[2020-02-01 10:57] LABS: ALBUMIN 3.6 g/dL (3.5-5.0); ALKALINE PHOSPHATASE 65 U/L (38-126); ASPARTATE AMINO TRANSFERASE 25 U/L (14-36); BILIRUBIN,TOTAL 0.8 mg/dL (0.2-1.3); BLOOD UREA NITROGEN 16 mg/dL (7-20); CALCIUM 8.8 mg/dL (8.4-10.2); GLUCOSE 106 mg/dL (75-110); TOTAL PROTEIN 6.5 g/dL (6.3-8.2)
[2020-02-01 11:03] LABS: CARBON DIOXIDE 31 mmol/L (22-30); CHLORIDE 105 mmol/L (98-107)
[2020-02-01 11:07] LABS: ANION GAP 3 (5-19)
[2020-02-01 11:10] LABS: ABSOLUTE BASOPHILS # (AUTO) 0.1 10^3/uL (0.0-0.2); ABSOLUTE EOSINOPHILS # (AUTO) 0.4 10^3/uL (0.0-0.6); ABSOLUTE LYMPHOCYTES (AUTO) 2.5 10^3/uL (0.5-4.7); ABSOLUTE MONOCYTES (AUTO) 0.5 10^3/uL (0.1-1.4); ABSOLUTE NEUT (AUTO) 4.3 10^3/uL (1.7-8.2); BASOPHILS % (AUTO) 1.4 % (0-2); HEMATOCRIT 38.9 % (36.0-47.0); HEMOGLOBIN 13.2 g/dL (12.0-15.5); LYMPHOCYTES % (AUTO) 31.4 % (13-45); MEAN CORPUSCULAR HEMOGLOBIN 29.9 pg (27.0-33.4); MEAN CORPUSCULAR HGB CONC 33.9 g/dL (32.0-36.0); MEAN CORPUSCULAR VOLUME 88 fl (80-97); PLATELET COUNT 287 10^3/uL (150-450); RED BLOOD COUNT 4.42 10^6/uL (3.72-5.28); RED CELL DISTRIBUTION WIDTH 14.6 % (11.5-14.0); SEGMENTED NEUTROPHILS % (AUTO) 55.2 % (42-78); TOTAL CELLS COUNTED % (AUTO) 100 %; WHITE BLOOD COUNT 7.8 10^3/uL (4.0-10.5)
== END 2020-02-01 14:27 | disposition home or self-care (01) ==
LOC: ER 08:32
DX: M25.552 Pain in left hip (principal); M25.512 Pain in left shoulder; M25.561 Pain in right knee; W19.XXXA Unspecified fall, initial encounter; R26.9 Unspecified abnormalities of gait and mobility; M25.511 Pain in right shoulder; G89.29 Other chronic pain; Z79.891 Long term (current) use of opiate analgesic; F17.200 Nicotine dependence, unspecified, uncomplicated; I25.10 Atherosclerotic heart disease of native coronary artery without angina pectoris; Z79.01 Long term (current) use of anticoagulants; Z95.2 Presence of prosthetic heart valve; Z91.048 Other nonmedicinal substance allergy status; Z88.6 Allergy status to analgesic agent; Z88.5 Allergy status to narcotic agent; Z91.040 Latex allergy status; Z88.8 Allergy status to other drugs, medicaments and biological substances; E11.9 Type 2 diabetes mellitus without complications
CPT/HCPCS: 99284; 96374; 36415; 85025; 85610; 80053; 81001; 73502; 73564; 73030; J2270

== ENCOUNTER 2020-03-18 04:37 | Emergency (ER) | payer MEDICARE, MEDICAID ==
--- NOTE | 2020-03-18 07:35 | RADIOLOGY REPORT (SQ) ---
EXAM: XR Left Elbow, 2 Views EXAM DATE/TIME: 03/18/2020 6:42 AM CLINICAL HISTORY: The patient is 59 years old and is Female; fall, arm pain , bruising TECHNIQUE: Frontal and lateral views of the left elbow. COMPARISON: No relevant prior studies available. FINDINGS: BONES/JOINTS: No acute fracture. No dislocation. No obvious elbow joint effusion. SOFT TISSUES: No significant soft tissue swelling visualized. IMPRESSION: No acute findings.
--- NOTE | 2020-03-18 07:41 | RADIOLOGY REPORT (SQ) ---
EXAM: XR Left Shoulder Complete, 2 Views EXAM DATE/TIME: 03/18/2020 6:37 AM CLINICAL HISTORY: The patient is 59 years old and is Female; fall, arm pain TECHNIQUE: Two views of the left shoulder. COMPARISON: Left shoulder radiographs from 02/01/2020 FINDINGS: BONES/JOINTS: No acute fracture. No dislocation. SOFT TISSUES: No significant soft tissue swelling visualized. IMPRESSION: No acute findings.
[2020-03-18] MEDS ORDERED: NEOMY/BACITRAC ZN/POLY OINT 15 GM TP ONE (08:35)
[2020-03-18] MEDS ORDERED: ACETAMINOPHEN 325 MG TABLET PO ONE (08:35)
[2020-03-18 09:22] LABS: APPEARANCE,URINE CLEAR; BILIRUBIN,URINE NEGATIVE (NEGATIVE); COLOR,URINE YELLOW; GLUCOSE, URINE NEGATIVE (NEGATIVE); KETONES,URINE NEGATIVE (NEGATIVE); LEUKOCYTE ESTERASE,URINE TRACE (NEGATIVE); NITRITE,URINE NEGATIVE (NEGATIVE); PROTEIN,URINE NEGATIVE (NEGATIVE); URINE SPECIFIC GRAVITY 1.004; UROBILINOGEN,URINE NEGATIVE mg/dL (<2.0)
--- NOTE | 2020-03-18 10:16 | ER Document Report ---
Entered by TWAN BEVERLY SCRIBE 03/18/20 0824 Acting as scribe for:GIO CHEW MD ED General - General Chief Complaint: Arm Injury Stated Complaint: FALL,ARM PAIN Time Seen by Provider: 03/18/20 06:15 Primary Care Provider: ANALI SANDOVAL MD [Primary Care Provider] - Follow up as needed Information source: Patient Notes: This 59 year old female patient presents to the emergency department today with 4/5 left shoulder pain. Patient states she had a mechanical fall at 3 am this morning when she was about to use the restroom. Patient states she was backing up to the toilet when her left foot turned and lost balance. Patient states she fell back to the floor and denies hitting her head or loss of consciousness. Patient states she lives alone and called for EMS by using her medalert. Denies neck pain, back pain, or a headache. Patient states she had a CVA that left her with a left sided deficit. TRAVEL OUTSIDE OF THE [place] IN LAST 30 DAYS: No - Related Data Allergies/Adverse Reactions: adhesive tape Allergy (Severe, Verified 03/18/20 05:16) Blisters codeine Allergy (Severe, Verified 03/18/20 05:16) itching latex [Latex] Allergy (Severe, Verified 03/18/20 05:16) skin irritation rizatriptan benzoate [From Maxalt] Allergy (Severe, Verified 03/18/20 05:16) Tachycardia sumatriptan succinate [From Imitrex STATdose Pen] Allergy (Severe, Verified 03/18/20 05:16) Anaphylaxis zolmitriptan [From Zomig] Allergy (Severe, Verified 03/18/20 05:16) Tachycardia Benzoate Analogues Allergy (Unknown, Verified 03/18/20 05:16) Past Medical History - General Information source: Patient - Social History Smoking Status: Current Some Day Smoker Cigarette use (# per day): Yes Frequency of alcohol use: None Drug Abuse: None Lives with: Alone Family History: Reviewed & Not Pertinent, CAD, CVA, DM, Hyperlipidemia, Hypertension, Malignancy, Thyroid Disfunction Patient has homicidal ideation: No - Past Medical History Cardiac Medical History: Reports: Hx Coronary Artery Disease - on meds Neurological Medical History: Reports: Hx Cerebrovascular Accident - 2000 and 2008; left sided deficit, Hx Migraine Endocrine Medical History: Reports: Hx Diabetes Mellitus Type 2 GI Medical History: Reports: Hx Diverticulitis, Hx Hiatal Hernia, Hx Ulcer, Hx Colonoscopy, Hx Endoscopy Musculoskeletal Medical History: Reports Hx Arthritis - back, HIP AND KNEES, Reports Hx Musculoskeletal Deformity, Reports Hx Musculoskeletal Trauma Psychiatric Medical History: Reports: Hx Anxiety, Hx Depression Traumatic Medical History: Reports: Hx Fractures Past Surgical History: Reports: Hx Appendectomy, Hx Bowel Surgery - resection, H x Cardiac Surgery - mechanical aortic valve, Hx Hysterectomy, Hx Nose Surgery, Hx Oral Surgery - wisdom teeth and TMJ, Hx Orthopedic Surgery - carpal tunnel right wrist, right elbow nerve, Hx Tonsillectomy, Hx Valve Replacement - Immunizations Immunizations up to date: Yes Hx Diphtheria, Pertussis, Tetanus Vaccination: Yes - 2011 Hx Pneumococcal Vaccination: 09/13/04 Review of Systems - Review of Systems Constitutional: No symptoms reported EENT: No symptoms reported Cardiovascular: No symptoms reported Respiratory: No symptoms reported Gastrointestinal: No symptoms reported Genitourinary: No symptoms reported Female Genitourinary: No symptoms reported Musculoskeletal: See HPI, Other - L shoulder pain. denies: Back pain, Neck pain Skin: No symptoms reported Hematologic/Lymphatic: No symptoms reported Neurological/Psychological: See HPI. denies: Lost consciousness, Headaches -: Yes All other systems reviewed and negative Physical Exam - Vital signs Vitals: Temp Pulse Resp BP Pulse Ox 97.7 F 77 14 111/72 94 03/18/20 07:44 03/18/20 07:44 03/18/20 07:44 03/18/20 07:44 03/18/20 07:44 - General General appearance: Appears well, Alert - HEENT Head: Normocephalic, Atraumatic Eyes: Normal Pupils: PERRL - Respiratory Respiratory status: No respiratory distress Chest status: Nontender Breath sounds: Normal Chest palpation: Normal - Cardiovascular Rhythm: Regular Heart sounds: Normal auscultation Murmur: No - Abdominal Inspection: Normal Distension: No distension Bowel sounds: Normal Tenderness: Nontender - Extremities General lower extremity: Normal inspection. No: Edema Notes: Soft tissue swelling of the left upper arm. Minor abrasions to the left dorsal elbow. No deformity of the left upper extremity. Tenderness with movement of the left shoulder. No dislocation. - Neurological Neuro grossly intact: Yes Cognition: Normal Orientation: AAOx4 Speech: Normal - Psychological Associated symptoms: Normal affect, Normal mood - Skin Skin Temperature: Warm Skin Moisture: Dry Skin Color: Normal Course - Re-evaluation Re-evalutation: 03/18/20 10:11 Patient resting comfortably not showing signs of distress at this time. - Vital Signs Vital signs: Temp Pulse Resp BP Pulse Ox 97.7 F 77 14 111/72 94 03/18/20 07:44 03/18/20 07:44 03/18/20 07:44 03/18/20 07:44 03/18/20 07:44 03/18/20 10:11 Vital signs stable afebrile respiratory rate 14 pulse is 77 and regular blood pressure is 111/72 with a pulse ox 94%. - Laboratory Laboratory results interpreted by me: 03/18/20 08:50 Ur Leukocyte Esterase TRACE H Urine Ascorbic Acid 20 H Urinalysis shows no acute process no evidence for infection. - Diagnostic Test Radiology reviewed: Image reviewed, Reports reviewed Radiology results interpreted by me: 03/18/20 10:12 Left shoulder series shows no fractures no dislocations no acute process. Left elbow no fracture no dislocation no acute process. Discharge - Discharge Clinical Impression: Accident due to mechanical fall without injury, Abrasion of skin, Elbow pain, left, Shoulder pain, acute Condition: Stable Disposition: HOME, SELF-CARE Additional Instructions: Shoulder Injury You have injured your shoulder. This usually results from stretching or tearing of the tendons during trauma. Time and protection are required in order to heal properly. Many injuries are quite disabling, and should be taken seriously. Initial treatment includes cold packs and a sling to rest the shoulder. The physician has assessed the seriousness of your injury, and has outlined a treatment plan. Understand that this treatment may change, depending on how you progress. If a re-examination was recommended, it is important that you follow up as instructed. Some shoulder injuries (such as partial tear of the rotator cuff) are only suspected after you've failed to improve. Call us if there's severe pain, numbness, or loss of function. Abrasions An abrasion is a scraping injury of the skin. Some scarring may result. The seriousness of an abrasion is not always obvious at first. Hidden tissue damage may be present and infection may occur despite proper care. Complete healing may take from ten days to as long as a month. The healing time depends on the depth of the abrasion, and on the amount of crushing of underlying tissues from the injury. Keep the wound and dressing clean. Do not shower or bathe the area until okayed by the doctor. If the dressing gets wet, remove it and blot the wound dry, then reapply a clean dressing. Dressings should be changed every day. Sunscreen should be used for six months after the skin is healed. If any signs of infection occur (swelling, redness, increasing tenderness, red streaks, profuse purulent drainage from the abrasion, tender lumps in the armpit or groin above the abrasion, or fever), see the doctor immediately. He also had elbow pain as a result of falling. X-ray shows that there is no fracture or dislocation of your elbow or your shoulder. We recommend you take your pain medications as needed for controlling your discomfort from your fall today. Also apply the Neosporin ointment that is been given to you on a daily basis to applied to the skin abrasion on your left upper arm until healed. Referrals: ANALI SANDOVAL MD [Primary Care Provider] - Follow up as needed I personally performed the services described in the documentation, reviewed and edited the documentation which was dictated to the scribe in my presence, and it accurately records my words and actions.
[2020-03-18 10:39] VITALS: BP 121/54
== END 2020-03-18 10:40 | disposition home or self-care (01) ==
LOC: ER 04:37
DX: S50.312A Abrasion of left elbow, initial encounter (principal); S49.92XA Unspecified injury of left shoulder and upper arm, initial encounter; M25.512 Pain in left shoulder; W18.30XA Fall on same level, unspecified, initial encounter; F17.210 Nicotine dependence, cigarettes, uncomplicated; I25.10 Atherosclerotic heart disease of native coronary artery without angina pectoris; I69.954 Hemiplegia and hemiparesis following unspecified cerebrovascular disease affecting left non-dominant side; Z88.6 Allergy status to analgesic agent; Z91.040 Latex allergy status
CPT/HCPCS: 99284; 81001; 73070; 73030; A9270 ×2; J3490